=== PATIENT | female | born 1940 | race Caucasian/White ===

== ENCOUNTER → 2019-07-07 | Outpatient (CLI) | payer MEDICARE ==
[~2019-07-07] MED LIST: HYDACE10B PO; NAPR500 PO
[2019-07-07 18:02] LABS: BASOPHILS ABSOLUTE AUTO 0.07 K/mm3 (0.00-0.23); BASOPHILS PERCENT AUTO 1 % (0-2); EOSINOPHILS ABSOLUTE AUTO 0.31 K/mm3 (0.00-0.68); EOSINOPHILS PERCENT AUTO 4 % (0-6); Hematocrit 45.1 % (33.0-51.0); Hemoglobin 14.2 g/dL (11.5-16.0); IMMATURE GRAN ABSOLUTE AUTO 0.01 K/mm3 (0.00-0.10); IMMATURE GRAN PERCENT AUTO 0 % (0-1); LYMPHOCYTES ABSOLUTE AUTO 1.65 K/mm3 (0.84-5.20); LYMPHOCYTES PERCENT AUTO 20 % (21-46); MONOCYTES ABSOLUTE AUTO 0.53 K/mm3 (0.16-1.47); MONOCYTES PERCENT AUTO 6 % (4-13); Mean Corpuscular HGB 31.5 pg (26.0-34.0); Mean Corpuscular HGB Conc 31.5 g/dL (31.5-36.5); Mean Corpuscular Volume 100 fL (80-100); Mean Platelet Volume 12.1 fL (9.1-12.4); NEUTROPHILS ABSOLUTE AUTO 5.65 K/mm3 (1.96-9.15); NEUTROPHILS PERCENT AUTO 69 % (41-73); Platelet Count 236 K/mm3 (150-400); RDW Coefficient Variation 12.2 % (11.7-14.2); RDW Standard Deviation 45.6 fL (35.1-46.3); Red Blood Cell Count 4.51 M/mm3 (3.80-5.20); White Blood Cell Count 8.22 K/mm3 (4.00-11.30)
[2019-07-07 18:41] LABS: Alanine Aminotransfer (ALT/SGP 29 U/L (12-78); Albumin, Blood 3.7 g/dL (3.4-5.0); Albumin/Globulin Ratio 0.9 (0.8-1.8); Alk Phos 119 U/L (50-136); Anion Gap 6 mmol/L (6-16); Aspartate Aminotrans (AST/SGOT 26 U/L (12-37); Bilirubin, Total 0.3 mg/dL (0.1-1.0); Blood Urea Nitrogen 13 mg/dL (8-24); Bun/Creatinine Ratio 16.8 (12.0-20.0); CHOL/HDL RATIO 2.5; CO2, Blood 28 mmol/L (21-32); Calcium, Blood 9.6 mg/dL (8.5-10.1); Chloride, Blood 109 mmol/L (98-108); Cholesterol 173 mg/dL (50-200); Creatinine, Blood 0.77 mg/dL (0.40-1.00); Globulin, Blood 4.1 g/dL (2.2-4.0); Glomerular Filtration Rate >60 (60-); Glucose, Blood 104 mg/dL (70-99); HDL Cholesterol 68 mg/dL (>39); LDL Direct Measurement 81 mg/dL (0-130); LDL/HDL RATIO 1.1; Low Density Lipoprotein Chol 74 mg/dL (0-110); Potassium, Blood 3.6 mmol/L (3.5-5.5); Sodium, Blood 143 mmol/L (136-145); Total Protein, Blood 7.8 g/dL (6.4-8.2); Triglycerides 153 mg/dL (30-160); Very Low Density Lipoprot Chol 30 mg/dL (6-32)
== END | disposition home or self-care (01) ==
LOC: LAB SHORT 16:44 → LAB 16:44
PROVIDERS: Nurse Practitioner Family
DX: E78.5 Hyperlipidemia, unspecified (principal); I10 Essential (primary) hypertension
CPT/HCPCS: 80053; 80061; 83721; 85025

== ENCOUNTER → 2020-03-01 | Outpatient (CLI) | payer MEDICARE | END | disposition home or self-care (01) | LOC: LAB 18:54 → LAB SHORT 18:54 | DX: N39.0 Urinary tract infection, site not specified (principal); N32.9 Bladder disorder, unspecified | CPT/HCPCS: 87086 ==

== ENCOUNTER → 2020-09-01 | Outpatient (CLI) | payer MEDICARE ==
[2020-09-01 17:54] LABS: BASOPHILS ABSOLUTE AUTO 0.06 K/mm3 (0.00-0.23); BASOPHILS PERCENT AUTO 1 % (0-2); EOSINOPHILS ABSOLUTE AUTO 0.31 K/mm3 (0.00-0.68); EOSINOPHILS PERCENT AUTO 3 % (0-6); Hematocrit 48.1 % (33.0-51.0); Hemoglobin 15.5 g/dL (11.5-16.0); IMMATURE GRAN ABSOLUTE AUTO 0.02 K/mm3 (0.00-0.10); IMMATURE GRAN PERCENT AUTO 0 % (0-1); LYMPHOCYTES ABSOLUTE AUTO 1.69 K/mm3 (0.84-5.20); LYMPHOCYTES PERCENT AUTO 17 % (21-46); MONOCYTES ABSOLUTE AUTO 0.54 K/mm3 (0.16-1.47); MONOCYTES PERCENT AUTO 6 % (4-13); Mean Corpuscular HGB Conc 32.2 g/dL (31.5-36.5); Mean Corpuscular Volume 99 fL (80-100); Mean Platelet Volume 11.7 fL (9.1-12.4); NEUTROPHILS PERCENT AUTO 73 % (41-73); Platelet Count 248 K/mm3 (150-400); RDW Coefficient Variation 12.4 % (11.7-14.2); RDW Standard Deviation 44.4 fL (35.1-46.3); Red Blood Cell Count 4.85 M/mm3 (3.80-5.20); White Blood Cell Count 9.72 K/mm3 (4.00-11.30)
[2020-09-01 17:59] LABS: Alanine Aminotransfer (ALT/SGP 29 U/L (12-78); Albumin, Blood 3.8 g/dL (3.4-5.0); Albumin/Globulin Ratio 0.8 (0.8-1.8); Alk Phos 156 U/L (50-136); Anion Gap 3 mmol/L (6-16); Aspartate Aminotrans (AST/SGOT 31 U/L (12-37); Bilirubin, Total 0.5 mg/dL (0.1-1.0); Blood Urea Nitrogen 14 mg/dL (8-24); Bun/Creatinine Ratio 17.2 (12.0-20.0); CO2, Blood 32 mmol/L (21-32); Calcium, Blood 9.2 mg/dL (8.5-10.1); Chloride, Blood 104 mmol/L (98-108); Creatinine, Blood 0.82 mg/dL (0.40-1.00); Globulin, Blood 4.5 g/dL (2.2-4.0); Glomerular Filtration Rate >60 (60-); Glucose, Blood 114 mg/dL (70-99); Potassium, Blood 3.7 mmol/L (3.5-5.5); Sodium, Blood 139 mmol/L (136-145); Total Protein, Blood 8.3 g/dL (6.4-8.2)
[2020-09-01 18:17] LABS: Very Low Density Lipoprot Chol 24 mg/dL (6-32)
[2020-09-01 18:19] LABS: CHOL/HDL RATIO 2.5; Cholesterol 186 mg/dL (50-200); HDL Cholesterol 73 mg/dL (>39); LDL/HDL RATIO 1.2; Low Density Lipoprotein Chol 89 mg/dL (0-110); Triglycerides 122 mg/dL (30-160)
== END | disposition home or self-care (01) ==
LOC: LAB 08:30 → LAB SHORT 08:30
PROVIDERS: Nurse Practitioner Family
DX: E78.5 Hyperlipidemia, unspecified (principal)
CPT/HCPCS: 80053; 80061; 85025

== ENCOUNTER → 2021-04-04 | Outpatient (CLI) | payer MEDICARE ==
[2021-04-04 17:42] LABS: BASOPHILS ABSOLUTE AUTO 0.09 K/mm3 (0.00-0.23); BASOPHILS PERCENT AUTO 1 % (0-2); EOSINOPHILS ABSOLUTE AUTO 0.45 K/mm3 (0.00-0.68); EOSINOPHILS PERCENT AUTO 5 % (0-6); Hematocrit 49.8 % (33.0-51.0); Hemoglobin 16.4 g/dL (11.5-16.0); IMMATURE GRAN ABSOLUTE AUTO 0.02 K/mm3 (0.00-0.10); IMMATURE GRAN PERCENT AUTO 0 % (0-1); LYMPHOCYTES ABSOLUTE AUTO 2.22 K/mm3 (0.84-5.20); LYMPHOCYTES PERCENT AUTO 24 % (21-46); MONOCYTES PERCENT AUTO 7 % (4-13); Mean Corpuscular HGB 31.4 pg (26.0-34.0); Mean Corpuscular HGB Conc 32.9 g/dL (31.5-36.5); Mean Corpuscular Volume 95 fL (80-100); Mean Platelet Volume 12.2 fL (9.1-12.4); NEUTROPHILS PERCENT AUTO 63 % (41-73); Platelet Count 209 K/mm3 (150-400); RDW Coefficient Variation 12.8 % (11.7-14.2); RDW Standard Deviation 44.7 fL (35.1-46.3); Red Blood Cell Count 5.22 M/mm3 (3.80-5.20); White Blood Cell Count 9.08 K/mm3 (4.00-11.30)
[2021-04-04 18:04] LABS: CHOL/HDL RATIO 2.6; Cholesterol 195 mg/dL (50-200); HDL Cholesterol 76 mg/dL (>39); LDL/HDL RATIO 1.2; Low Density Lipoprotein Chol 94 mg/dL (0-110); Triglycerides 126 mg/dL (30-160); Very Low Density Lipoprot Chol 25 mg/dL (6-32)
[2021-04-04 19:24] LABS: Alanine Aminotransfer (ALT/SGP 29 U/L (12-78); Albumin, Blood 3.7 g/dL (3.4-5.0); Albumin/Globulin Ratio 0.8 (0.8-1.8); Alk Phos 170 U/L (50-136); Anion Gap 7 mmol/L (6-16); Aspartate Aminotrans (AST/SGOT 34 U/L (12-37); Bilirubin, Direct 0.1 mg/dL (0.0-0.3); Bilirubin, Indirect 0.5 mg/dL (0.1-0.7); Bilirubin, Total 0.6 mg/dL (0.1-1.0); Blood Urea Nitrogen 15 mg/dL (8-24); Bun/Creatinine Ratio 18.8 (12.0-20.0); CO2, Blood 27 mmol/L (21-32); Calcium, Blood 9.2 mg/dL (8.5-10.1); Chloride, Blood 106 mmol/L (98-108); Globulin, Blood 4.8 g/dL (2.2-4.0); Glomerular Filtration Rate >60 (60-); Glucose, Blood 110 mg/dL (70-99); Potassium, Blood 3.5 mmol/L (3.5-5.5); Sodium, Blood 140 mmol/L (136-145); Total Protein, Blood 8.5 g/dL (6.4-8.2)
== END | disposition home or self-care (01) ==
LOC: LAB SHORT 08:16
PROVIDERS: Nurse Practitioner Family
DX: Z13.1 Encounter for screening for diabetes mellitus (principal); E78.5 Hyperlipidemia, unspecified; I10 Essential (primary) hypertension; R79.9 Abnormal finding of blood chemistry, unspecified; R73.9 Hyperglycemia, unspecified
CPT/HCPCS: 80053; 80061; 82248; 83036; 85025

== ENCOUNTER → 2021-07-20 | Outpatient (CLI) | payer MEDICARE ==
[2021-07-20 20:08] LABS: Albumin, Blood 3.8 g/dL (3.4-5.0); Albumin/Globulin Ratio 1.1 (0.8-1.8); Bilirubin, Total 0.7 mg/dL (0.1-1.0); Calcium, Blood 9.2 mg/dL (8.5-10.1); Globulin, Blood 3.6 g/dL (2.2-4.0); Potassium, Blood 3.3 mmol/L (3.5-5.5); Total Protein, Blood 7.4 g/dL (6.4-8.2)
== END | disposition home or self-care (01) ==
LOC: LAB SHORT 15:56
PROVIDERS: Nurse Practitioner Family
DX: I50.9 Heart failure, unspecified (principal)
CPT/HCPCS: 80053; 83880

== ENCOUNTER 2021-08-05 13:52 | Inpatient (IN) | payer MEDICARE ==
[~2021-08-05] VITALS: Ht 149.9 cm; Wt 67.0 kg
[2021-08-05] MEDS ORDERED: FUROSEMIDE20 MG (14:15)
[2021-08-05] MEDS ORDERED: ATOR10 (14:15)
[2021-08-05] MEDS ORDERED: IPRAT-ALBUT 0.5-3 ML (14:15)
[2021-08-05] MEDS ORDERED: AMLODIPINE BESYL5 MG (14:15)
[2021-08-05] MEDS ORDERED: TIOT18 INH (14:15)
[2021-08-05] MEDS ORDERED: Micro-K8 MEQ (14:15)
[2021-08-05] MEDS ORDERED: METOPROLOL SUCC25 MG (14:16)
[2021-08-05] MEDS ORDERED: PILO5 (14:16)
[2021-08-05 14:35] LABS: Calcium, Ionized (POC) 1.06 mmol/L (1.10-1.46); Chloride (POC) 103 mmol/L (98-108); Creatinine (POC) 2.5 mg/dL (0.6-1.0); Glucose (ISTAT POC) 114 mg/dL (70-99); Hemoglobin (POC) 18.4 g/dL (12.0-16.0); Potassium (POC) 4.9 mmol/L (3.5-5.5); Sodium (POC) 140 mmol/L (135-148); Total CO2 (POC) 25 mmol/L (21-32)
[2021-08-05 14:52] LABS: BASOPHILS ABSOLUTE AUTO 0.09 K/mm3 (0.00-0.23); BASOPHILS PERCENT AUTO 0 % (0-2); EOSINOPHILS PERCENT AUTO 0 % (0-6); Hemoglobin 16.3 g/dL (11.5-16.0); IMMATURE GRAN ABSOLUTE AUTO 0.13 K/mm3 (0.00-0.10); IMMATURE GRAN PERCENT AUTO 1 % (0-1); LYMPHOCYTES ABSOLUTE AUTO 0.27 K/mm3 (0.84-5.20); LYMPHOCYTES PERCENT AUTO 1 % (21-46); MONOCYTES ABSOLUTE AUTO 1.26 K/mm3 (0.16-1.47); MONOCYTES PERCENT AUTO 6 % (4-13); Mean Corpuscular HGB 31.3 pg (26.0-34.0); Mean Corpuscular HGB Conc 29.5 g/dL (31.5-36.5); Mean Corpuscular Volume 106 fL (80-100); NEUTROPHILS ABSOLUTE AUTO 19.97 K/mm3 (1.96-9.15); NEUTROPHILS PERCENT AUTO 92 % (41-73); Platelet Count 191 K/mm3 (150-400); RDW Coefficient Variation 14.3 % (11.7-14.2); RDW Standard Deviation 56.5 fL (35.1-46.3); Red Blood Cell Count 5.21 M/mm3 (3.80-5.20); White Blood Cell Count 21.72 K/mm3 (4.00-11.30)
[2021-08-05 14:53] LABS: Hematocrit 55.2 % (33.0-51.0)
[2021-08-05 15:22] LABS: Albumin, Blood 3.4 g/dL (3.4-5.0); Albumin/Globulin Ratio 1.1 (0.8-1.8); Bilirubin, Total 1.6 mg/dL (0.1-1.0); Bun/Creatinine Ratio 13.3 (12.0-20.0); Calcium, Blood 8.9 mg/dL (8.5-10.1); Creatinine, Blood 2.41 mg/dL (0.40-1.00); Potassium, Blood 5.1 mmol/L (3.5-5.5); Total Protein, Blood 6.4 g/dL (6.4-8.2)
[2021-08-05 15:37] LABS: Influenza A, PCR NEGATIVE (NEGATIVE); Influenza B, PCR NEGATIVE (NEGATIVE); Resp Syncytial Virus, PCR NEGATIVE (NEGATIVE); SARS-Cov-2 (COVID-19) PCR, MMC NEGATIVE (NEGATIVE)
[2021-08-05 15:42] LABS: Source, Urine Foley catheter
[2021-08-05 15:47] LABS: Bilirubin, Urine Neg (Neg); Blood, Urine 2+ (Neg); Glucose Qualitative, Urine Neg (Neg); Ketones, Urine Neg (Neg); Leukocyte Esterase, Urine Neg (Neg); Nitrite, Urine Neg (Neg); Protein, Urine 2+ (Neg); Urobilinogen, Urine 1+ (Normal)
[2021-08-05 15:55] LABS: Appearance, Urine Clear (Clear); Color, Urine Pale Yellow (P-Yellow); White Blood Cells, Urine 0-2 /hpf (0-5)
[2021-08-05 15:56] LABS: Bacteria Rare /hpf; Granular Casts 0-2 /lpf (0); Hyaline Casts 0-2 /lpf (0-2); Squamous Epithelial Cells Few /hpf (Few)
[2021-08-05 20:16] LABS: International Normalized Ratio 1.58; Prothrombin Time Results 16.1 Sec (9.7-11.5)
[2021-08-05 21:09] LABS: Base Excess Venous -3.4 mmol/L; Bicarbonate Venous 19.4 mmol/L (24.0-30.0); PCO2 Venous 76.6 mmHg (38-42); PO2 Venous 50.6 mmHg (38-42)
[2021-08-05 21:10] LABS: pH Blood Venous 7.13 (7.34-7.37)
[2021-08-06 00:42] LABS: PCO2 Arterial 50.7 mmHg (35-45); pH Blood Arterial 7.22 (7.35-7.45)
[2021-08-06 00:43] LABS: PO2 Arterial 70 mmHg (80-100)
[2021-08-06 02:02] LABS: BASOPHILS ABSOLUTE AUTO 0.05 K/mm3 (0.00-0.23); BASOPHILS PERCENT AUTO 0 % (0-2); EOSINOPHILS PERCENT AUTO 0 % (0-6); Hemoglobin 14.9 g/dL (11.5-16.0); IMMATURE GRAN ABSOLUTE AUTO 0.04 K/mm3 (0.00-0.10); IMMATURE GRAN PERCENT AUTO 0 % (0-1); LYMPHOCYTES ABSOLUTE AUTO 0.19 K/mm3 (0.84-5.20); LYMPHOCYTES PERCENT AUTO 1 % (21-46); MONOCYTES ABSOLUTE AUTO 1.02 K/mm3 (0.16-1.47); MONOCYTES PERCENT AUTO 7 % (4-13); Mean Corpuscular HGB 31.6 pg (26.0-34.0); Mean Corpuscular HGB Conc 30.4 g/dL (31.5-36.5); Mean Corpuscular Volume 104 fL (80-100); Mean Platelet Volume 11.2 fL (9.1-12.4); NEUTROPHILS ABSOLUTE AUTO 12.73 K/mm3 (1.96-9.15); NEUTROPHILS PERCENT AUTO 91 % (41-73); Platelet Count 191 K/mm3 (150-400); RDW Coefficient Variation 13.9 % (11.7-14.2); RDW Standard Deviation 54.4 fL (35.1-46.3); Red Blood Cell Count 4.72 M/mm3 (3.80-5.20); White Blood Cell Count 14.03 K/mm3 (4.00-11.30)
[2021-08-06 02:42] LABS: Alanine Aminotransfer (ALT/SGP 3125 U/L (12-78); Albumin, Blood 3.4 g/dL (3.4-5.0); Albumin/Globulin Ratio 1.3 (0.8-1.8); Alk Phos 87 U/L (50-136); Anion Gap 15 mmol/L (6-16); Aspartate Aminotrans (AST/SGOT 4344 U/L (12-37); Blood Urea Nitrogen 40 mg/dL (8-24); Bun/Creatinine Ratio 15.3 (12.0-20.0); CO2, Blood 22 mmol/L (21-32); Calcium, Blood 7.6 mg/dL (8.5-10.1); Chloride, Blood 104 mmol/L (98-108); Creatinine, Blood 2.61 mg/dL (0.40-1.00); Globulin, Blood 2.6 g/dL (2.2-4.0); Glomerular Filtration Rate 17 (60-); Glucose, Blood 189 mg/dL (70-99); Sodium, Blood 141 mmol/L (136-145); Vancomycin, Random 16.8 ug/mL
[2021-08-06 05:34] LABS: Base Excess Venous -5.2 mmol/L; Bicarbonate Venous 20.3 mmol/L (24.0-30.0); PCO2 Venous 41.5 mmHg (38-42); PO2 Venous 72.6 mmHg (38-42); pH Blood Venous 7.31 (7.34-7.37)
--- NOTE | 2021-08-06 06:46 | NUR ---
SHIFT SUMMARY PATIENT WAS INTUBATED JUST PRIOR TO MIDNIGHT AFTER EPISODE OF VOMITING WITH BIPAP MASK ON. PATIENT BEGAN DESATTING AND RT CALLED TO BEDSIDE WITH DR. COOMBS FOLLOWING SHORTLY AFTER. SEE OPERATIVE NOTE FROM DR. COOMBS ON INTUBATION. PATIENT IS NOW ON AC/VC 26/350/5/40% WITH SPO2 IN MID 90'S. LEVOPHED TITRATED DOWN FROM 30MCG/KG/MIN TO 15MCG/KG/MIN. VASOPRESSIN STILL INF AND PROPOFOL AT 30MCG/KG/MIN. PATIENT HAD MULTIPLE CRITICAL LABS INCLUDING VBG AND ABG RESULTS WHICH HAVE IMPROVED BY END OF SHIFT. TROPONINS STILL TRENDING HIGH AND LIVER ENZYMES ARE ELEVATED AT 4344 FOR AST AND 3125 FOR ALT. CALCIUM LOW AT 7.6. TEMP VALENCIA PATENT AND DRAINED 100ML OUT OF JAYANT URINE. PATIENT BEGAN POSTURING FOLLOWING INTUBATION AND HAS NOT BEEN THERMOREGULATING APPROPRIATELY; REQUIRES FREQUENT CHANGES WITH BLANKETS TO KEEP TEMPERATURE MAINTAINED AT 98-99F. BEAR HUGGER REMOVED AT BEGINNING OF SHIFT. ECHO COMPLETED AT BEDSIDE. NO OTHER MAJOR CHANGES DURING SHIFT.
[2021-08-06 07:00] LABS: PCO2 Arterial 80.9 mmHg (35-45); pH Blood Arterial 7.06 (7.35-7.45)
[2021-08-06 07:01] LABS: PO2 Arterial 185 mmHg (80-100)
--- NOTE | 2021-08-06 07:27 | NUR ---
Received report from Daisy SEVERINO. Patient is intubated and sedated. She has 8.0 ET and 24 cm at lips with vent settings of AC/VC 26/350/30/5.0 and sats 99%. She withdrawls with care or nocious stimuli. She has right groin CL dressing intact and site WNL's and is infuisng Levophed double strength at 1- mcg/min, propofol at 30 mcg/kg/min, Vasopressin at 0.04 units/min, and NS TKO. Patient has 16 Fr Temp ramirez draining to gravity yellow urine and temp of 99.2.
--- NOTE | 2021-08-06 09:30 | NUR ---
Dr Souza in room and adjusted vent setting as sats decreased, current settings are 26/350/40/8 and sats 97%. Gave complete bath and linen change. No changes to Gtt's. called and Dr Souza gave him updates.
[2021-08-06 10:02] LABS: PCO2 Arterial 45.4 mmHg (35-45); PO2 Arterial 95.5 mmHg (80-100); pH Blood Arterial 7.31 (7.35-7.45)
--- NOTE | 2021-08-06 11:39 | NUR ---
US in room doing lower venous duplex. No changes to vent or gtt settings. Oral care and repositioning done OG remains on LIS with no output. Andrews patent and draining to gravity.
--- NOTE | 2021-08-06 15:04 | NUR ---
No changes to vent settings of 26/350/40/8 sats 98%. Gtts of Propofol 30 mcg/kg/min, Levophed 10 mcg/min,m Vasopressin 0.04 units/hr, NS TKO. Repositioned and elevate extremities.
--- NOTE | 2021-08-06 15:57 | NUR ---
ASSUME CARE: I have assumed care of this pt.
--- NOTE | 2021-08-06 18:47 | NUR ---
SHIFT SUMMARY: I took this patient over at 1600 today. UOP today only 150. Vent settings currently AC 40%, PEEP 8, RR 16, TV 350. Vasopressin continues at 0.04, levophed at 10, propofol at 30. Pt withdrawls to painful stimuli. No gag elicited on exam. NG tube to low intermitant suction due to small amount of blood visualized in tube by previous RN.
--- NOTE | 2021-08-06 19:30 | NUR ---
ASSUMED CARE. SEDATED ON VENT. SETTINGS 16/350/8/40% OPENED EYES WHEN REPOSITIONED. PUPILS 2MM AND SLUGGISH. FLEXION WITHDRAWL OF THE BLE. 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 RESPONDS TO PAINFUL STIMULI. LUNG SOUNDS ARE CLEAR UPPER LOBES DIMINISHED MID TO BASES. SATS MAINTAINING IN THE 90'S. COUGH IS NOTED WITH SUCTION, GAG, AND SWALLOW. WAS ABLE TO SUCTION SMALL AMOUNT OF BILE FOR ORAL CAVITY. FIXED SUCTION, LOW INTERMINTENT. HR PER MONITOR IN 90'S, MAP 70'S. EDEMA FROM TOES TO MID BACK PITTING, 3+. BILATERAL FEET COLD, UNABLE TO OBTAIN PEDAL PULSES WITH DOBBLER. FAINT TO MEDIAL ANKLE AREA ONLY. CAP REFILL >3. VALENCIA PATENT AND DRAINING. CURRENTLY RUNNING LEVOPHED AT 10, PROPOFOL 30, AND VASOPRESSOR AT 0.04.
--- NOTE | 2021-08-06 22:33 | NUR ---
SPOKE TO DR. COOMBS IN REGARDS TO PATIENT GOING INTO AFIB WITH RATE UP TO 130'S. STRIPS TO CHART. ORDER TO START CARDIZEM IF RATE SUSTAINS GREATER THAN 120.
[2021-08-07 03:33] LABS: BASOPHILS ABSOLUTE AUTO 0.02 K/mm3 (0.00-0.23); BASOPHILS PERCENT AUTO 0 % (0-2); EOSINOPHILS PERCENT AUTO 0 % (0-6); Hematocrit 40.1 % (33.0-51.0); Hemoglobin 12.8 g/dL (11.5-16.0); IMMATURE GRAN ABSOLUTE AUTO 0.05 K/mm3 (0.00-0.10); IMMATURE GRAN PERCENT AUTO 1 % (0-1); LYMPHOCYTES ABSOLUTE AUTO 0.73 K/mm3 (0.84-5.20); LYMPHOCYTES PERCENT AUTO 7 % (21-46); MONOCYTES ABSOLUTE AUTO 0.51 K/mm3 (0.16-1.47); MONOCYTES PERCENT AUTO 5 % (4-13); Mean Corpuscular HGB 31.4 pg (26.0-34.0); Mean Corpuscular HGB Conc 31.9 g/dL (31.5-36.5); Mean Platelet Volume 11.7 fL (9.1-12.4); NEUTROPHILS ABSOLUTE AUTO 9.37 K/mm3 (1.96-9.15); NEUTROPHILS PERCENT AUTO 88 % (41-73); NRBC ABSOLUTE 0.04 K/mm3 (0.00-0.02); NRBC Auto 0.4 /100 WBC (0.0-0.2); Platelet Count 133 K/mm3 (150-400); RDW Standard Deviation 50.7 fL (35.1-46.3); Red Blood Cell Count 4.07 M/mm3 (3.80-5.20); White Blood Cell Count 10.68 K/mm3 (4.00-11.30)
[2021-08-07 03:34] LABS: Mean Corpuscular Volume 99 fL (80-100)
[2021-08-07 03:54] LABS: Albumin, Blood 3.5 g/dL (3.4-5.0); Anion Gap 11 mmol/L (6-16); Blood Urea Nitrogen 52 mg/dL (8-24); Bun/Creatinine Ratio 18.2 (12.0-20.0); CO2, Blood 25 mmol/L (21-32); Chloride, Blood 105 mmol/L (98-108); Creatinine, Blood 2.86 mg/dL (0.40-1.00); Glomerular Filtration Rate 16 (60-); Glucose, Blood 130 mg/dL (70-99); Phosphorus, Blood 4.4 mg/dL (2.5-4.9); Potassium, Blood 3.8 mmol/L (3.5-5.5); Sodium, Blood 141 mmol/L (136-145); Vancomycin, Random 16.8 ug/mL
--- NOTE | 2021-08-07 05:59 | NUR ---
AFTER REVIEWING CHEST XRAY OG ADVANCED APROX 7 CM CHECKING WITH AIR BOLUS. CONTINUES TO DRAIN DARK BROWN BILE TO LIS. SECURED WITH RT PINK TAPE.
--- NOTE | 2021-08-07 06:10 | NUR ---
SHIFT SUMMARY: SEDATED WITH NO CHANGE TO VENT SETTINGS. SETTINGS CURRENTLY AT 16/340/8/40%. SATS AVERAGE HIGH 90'S. DIMINISHED LUNG SOUNDS, MINIMAL SECREATIONS WITH SUCTION. WITHDRAWLS WITH PAIN. GAG, SWALLOW, AND COUGH ALL NOTED WHEN SUCTIONING. IN AFIB WITH RATE RANGE OF 115-130'S. DR. COOMBS NOTIFIED. ORDER FOR CARDIZEM FOR RATE >120 SUSTAINED. FAINT PULSES, ABSENT TO RIGHT PEDAL WITH DOPPLER, BUT OBTAINED PULSE TO MEDIAL ANKLES. 3+ EDEMA BLE UP TO MID BACK. SBP 80-90'S WITH MAP 60-70. ABD HYPOACTIVE MILD DISTENSION SOFT. OJ TO LIS-TUBE ADVANCED THIS AM, 100CC OUTPUT. SMALL AMOUNT OF BILE SUCTIONED FROM ORAL GAVITY. VALENCIA PATENT, 275CC OUTPUT. WEIGHT GAIN NOTED OF 6.2LBS THIS AM. MEDS CURRENTLY RUNNING: LEVOPHED-5; PROPOFOL-35; VASO ON HOLD, AND TKO. ABNORMAL LABS CONSIST OF: CREATINE-2.86; GFR-16; BNP- PENDING; AND TROPONIN TRENDING DOWN AT 466. WILL REPORT CHANGES TO DAYSHIFT. LIS- OJ TUBE ADVANCED THIS AM. 100CC OUTPUT.
--- NOTE | 2021-08-07 08:10 | NUR ---
ASSUMED CARE: REPORT RECEIVED FROM MARLENA HOWELL W, RNs. ASSUMED CARE OF THIS PT AT APPROX 0700. ON ASSESSMENT, THE PT IS SEDATED W/ PROPOFOL & INTUBATED. GRIMACES TO PAINFUL STIMULUS, HENSON. LS ARE DIM IN BASES, PT ON VENT W/ SETTINGS: AC/VC 16/350/8/40% W/ O2 SATS > 92%. MONITOR SHOWS AFIB W/ RVR, HR 110s. PERSISTANT HYPOTENSION W/ LEVOPHED INFUSING AT 4 MCG/MIN. OGT IN PLACE TO LIS, DARK GREEN/ BILE OUTPUT NOTED IN SMALL AMOUNTS. TEMP VALENCIA PATENT/ DRAINING YELLOW URINE. SKIN CONDITION OVERAL INTACT, Q2H REPOSITIONING TO MAINTAIN SKIN INTEGRITY. WILL CONTINUE TO MONITOR & UPDATE NEEDED.
--- NOTE | 2021-08-07 14:44 | NUR ---
DR WILKES: PROVIDER AT BEDSIDE TO EVAL PT. HAS PLACED VENT ON SPONTANEOUS W/ PS 12, PEEP 8 & FIO2 35%. PT TOLERATING WELL W/ ADEQUATE TIDAL VOLUMES & RR. SHE WOULD LIKE PROPOFOL TO BE TITRATED DOWN & PRECEDEX TO BE STARTED SEDATION ADJUNCT. NO OTHER CHANGES AT THIS TIME.
--- NOTE | 2021-08-07 17:15 | NUR ---
NO ACUTE CHANGES. PT REMAINS INTUBATED AND SEDATED WITH PROPOFOL. LUNG SOUNDS ARE CLEAR AND DIMINISHED IN THE LOWER LOBES. AFIB WITH HR RANGING 90-130, SHE IS ON 10MG CARDIZEM FOR HR SUSTAINING IN THE 130'S. OG NUTRITION STARTED @ 25MLS/HR. CATHETER CONTINUES TO DRAIN WELL WITH AN OUTPUT OF 400 ML SINCE 0700. NO BM 3+ PITTING EDEMA IN LOWER EXREMITIES TO MID BACK. SHE CONTINUES TO WITHDRAW TO PAIN AND OPENS EYES TO VERBAL STIMULUS BUT DOES NOT TRACK STAFF AND DOES NOT PROTECT.
--- NOTE | 2021-08-07 17:46 | NUR ---
SHIFT SUMMARY: NO ACUTE CHANGES SINCE PRIOR UPDATES. PT REMAINS SEDATED W/ PROPOFOL & INTUBATED W/ 8.0 ETT, NOTED TO BE 23.0 CM ATG. PT OPENS EYES TO VERBAL STIMULUS, DOES NOT TRACK OR PROTECT BY BLINKING. LS CLEAR T/O, VENT SETTINGS: SPONTANEOUS W/ PS 12, PEEP 8 & 35% FIO2. MONITOR SHOWS AFIB W/ HR 80-100, CARDIZEM CURRENTLY INFUSING AT 5 MG/HR, LEVOPHED INFUSING AT 10 MCG/MIN. OGT IN PLACE W/ TUBE FEEDS OF PIVOT 1.5 INFUSING AT 25 ML/HR W/ 30 ML H2O FLUSH Q4H. TUBE FEED RATE MAY BE INCREASED TO GOAL RATE OF 35 ML/HR AT APPROX 2030 TONIGHT IF PT CONTINUES TO TOLERATE WELL. TEMP VALENCIA PATENT/ DRAINING YELLOW URINE W/ OUTPUT CONTINUING TO IMPROVE. SKIN CONDITION OVERALL INTACT, Q2H REPOSITIONING TO MAINTAIN SKIN INTEGRITY. WILL CONTINUE TO MONITOR & REPORT OFF TO ONCOMING RN.
--- NOTE | 2021-08-07 20:34 | NUR ---
ASSUMED CARE. OPENS EYES TO NAME, DOES NOT TRACK, DOES NOT FOLLOW COMMANDS. PUPILS SLUGGISH, 3MM IN SIZE. RETRACTS LEGS UP AND WIGGLES IN BED. RT WAS IN AROUND 1950 AND CHANGED VENT TO (AC) SETTINGS 16/350/8/35%. SATS 96%. SUCTION COMPLETED THIN CLEAR YELLOW SECREATIONS. OG WITH TUBE FEEDING INCREASED TO 30CC, RESIDUAL WAS 20CC AT THE TIME. LUNG SOUNDS DIMINISHED. TACHYCARDIC 100-114, AFIB. PEDAL PULSES FAINT WITH DOPPLER. EDEMA IMPROVING SLIGHTLY. CATH PATENT, YELLOW URINE. IV DRIPS OF LEVO-10; PROPOFOL-20, CARDIZEM-5, KVO NS. AFTER REPOSITIONING, PATIENT BECAME AGGITATED WIGGLEING IN BED, PULLING ON RESTRAINTS. THEREFORE PRECEDEX DRIP WAS STARTED AT 0.2MCQ.
--- NOTE | 2021-08-07 21:30 | NUR ---
INCREASED TUBE FEED AT 2006 TO 30ML/HR. THEN INCREASED TO GOAL RATE OF 35ML/HR. PATIENT TOLERATING WELL. RESIDUAL AT TIME OF INCREASE WAS 20CC.
--- NOTE | 2021-08-08 | NUR ---
BEDBATH COMPLETED. TOLERATED WELL. DOES NOT LIKE TO REPOSITION. SHE TENDS TO WIGGLE FOR SHORT PERIOD OF TIME AFTERWARDS TILL SHE GETS INTO COMFORTABLE POSITION. DURING THIS TIME, RESPIRATIONS TENDS TO INCREASE IN THE 30'S, MAP DIPPED SLIGHTLY. ORAL CARE COMPLETED. NO CHANGES TO CURRENT DRIPS. SEE FLOWSHEET. VENT REMAINS ON ASSIST CONTROL, NO CHANGE TO SETTINGS.
[2021-08-08 05:39] LABS: Albumin, Blood 3.2 g/dL (3.4-5.0); Anion Gap 8 mmol/L (6-16); Blood Urea Nitrogen 47 mg/dL (8-24); Bun/Creatinine Ratio 20.6 (12.0-20.0); CO2, Blood 25 mmol/L (21-32); Calcium, Blood 7.6 mg/dL (8.5-10.1); Chloride, Blood 109 mmol/L (98-108); Creatinine, Blood 2.28 mg/dL (0.40-1.00); Glomerular Filtration Rate 20 (60-); Glucose, Blood 149 mg/dL (70-99); Potassium, Blood 3.1 mmol/L (3.5-5.5); Sodium, Blood 142 mmol/L (136-145); Vancomycin, Random 17.9 ug/mL
--- NOTE | 2021-08-08 06:49 | NUR ---
SHIFT SUMMARY: CONTINUES ON VENT SETTINGS 16/350/8/40%. LS CLEAR, DIMINISHED IN BASES. SATS HIGH 90'S, SUCTION CLEAR SMALL AMOUNTS VIA ETT. WILL OPEN EYES, NO TRACKING, DOES NOT FOLLOW DIRECTIONS. FLEXTION WITHDRAWL AND GROSS MOTOR MOVEMENTS NOTED. WILL GET AGGITATED WITH REPOSITIONING OR ORAL SUCTION. CONTINUES TO BE IN AFIB RATE IN THE 80'S, HAS HAD MULTIFORM PVC'S, PAIR PVC'S. BP LOW 90'S WITH MAP >60. EDEMA IMPROVING SLIGHTLY, +3 DEPENDENT FROM TOES TO MID BACK. NO SKIN BREAKDOWN. PEDAL PULSES FAINT BUT PALPABLE. VALENCIA OUTPUT 675. TUBE FEED AT GOAL OF 35CC/HR. RESIDUALS <35. LABS THIS AM: CREATINE 2.28; GFR-20; K+ 3.1; PHOSPHORUS 2.0. TUBE FEED AT GOAL OF 35ML/HR. GTTS: LEVO-10; CARDIZEM-5; PROPOFOL-20; PRECEDEX-0.3 AND TKO.
--- NOTE | 2021-08-08 08:10 | NUR ---
ASSUMED CARE: REPORT RECEIVED FROM MARLENA HOWELL W, RNs. ASSUMED CARE OF THIS PT AT APPROX 0700. ON ASSESSMENT, THE PT IS SEDATED W/ PROPOFOL & PRECEDEX, RESTING QUIETLY. SHE GRIMACES TO PAINFUL STIMULUS & OPENS EYES TO VERBAL STIMULUS. LS ARE DIM IN BASES, VENT SETTINGS: AC/VC 16/350/8/35% W/ O2 SATS > 92%. MONITOR SHOWS AFIB W/ HR 70-80s, OCCASIONAL PVCs, CARDIZEM DRIP AT 5 MG/HR. LEVOPHED INFUSING AT 10 MCG/MIN FOR PERSISTANT HYPOTENSION. OGT IN PLACE W/ PIVOT 1.5 AT GOAL RATE OF 35 ML/HR. TEMP VALENCIA PATENT/ DRAINING YELLOW URINE. SKIN CONDITION OVERALL EDEMATOUS, FRAGILE, INTACT. Q2H REPOSITIONING TO MAINTAIN SKIN INTEGRITY. WILL CONTINUE TO MONITOR & UPDATE NEEDED.
--- NOTE | 2021-08-08 09:26 | NUR ---
UPDATE: DR WILKES AT BEDSIDE THIS AM TO EVAL PT. SHE WOULD LIKE US TO TITRATE THE PROPOFOL DOWN FURTHER THIS SHIFT & INCREASE PRECEDEX PRN TO KEEP THE PATIENT COMFORTABLE. THE VENT HAS BEEN PLACED ON SPONTANEOUS MODE AT APPROX 0905 W/ SETTINGS: PS 8, PEEP 8 & FIO2 35%. THE PT IS TOLERATING THIS WELL W/ ADEQUATE TIDAL VOLUMES & RR.
--- NOTE | 2021-08-08 17:39 | NUR ---
SHIFT SUMMARY: NO ACUTE CHANGES SINCE PRIOR UPDATES. PT REMAINS LIGHTLY SEDATED W/ PROPOFOL & PRECEDEX. EYES OPEN TO VERBAL STIMULUS, PT APPEARED TO TURN HER HEAD TOWARD VERBAL STIMULUS BUT HAVE BEEN UNABLE TO REPLICATE THIS OCCURENCE. LS DIM IN BASES, VENT SETTINGS: SPONTANEOUS W/ PS 8, PEEP 8 & FIO2 35%. PT TOLERATING WELL W/ O2 SATS > 92%, ADEQUATE TIDAL VOLUMES & RR. MONITOR SHOWS AFIB W/ HR 70-100s ON AVG. FIRST DOSE PO CARDIZEM GIVEN TONIGHT AT 1700, IV CARDIZEM DRIP PLACED ON STANDBY AT APPROX 1735. LEVOPHED INFUSING AT 10 MCG/MIN FOR HYPOTENSION. OGT IN PLACE W/ PIVOT 1.5 INFUSING AT GOAL RATE OF 35 ML/HR, MODERATE RESIDUALS - SEE I&O. BOWEL CARE INITIATED PER EMAR, NO BM THIS SHIFT. TEMP VALENCIA PATENT/ DRAINING YELLOW URINE W/ ADEQUATE OUTPUT. SKIN CONDITION OVERALL FRAGILE, INTACT. Q2H REPOSITIONING TO MAINTAIN SKIN INTEGRITY. WILL CONTINUE TO MONITOR & REPORT OFF TO ONCOMING RN.
--- NOTE | 2021-08-08 20:43 | NUR ---
ASSUMED CARE. RT CHANGED VENT SETTING BACK TO VC/AC, SETTINGS 16/350/8/35%. SATS CONTINUE IN THE HIGH 90'S. OPEN EYES TO PAIN AND MOVEMENT. DOES NOT TRACK, PUPILS SLUGGISH. GROSS MOVEMENTS. AFTER SUCTIONING SHE DID OPEN HER EYES WIDE, WHEN ASKED IF SHE WAS IN PAIN SHE NODDED HEAD YES. WHEN NAMING OFF AREAS, ONLY GOT RESPONSE WHEN ASKED IF THROAT HURT, SHE OPENED HER MOUTH WIDE AND RAISED HER HEAD. REMINDED HER OF PLACE, WHAT WAS GOING ON, SHE REMAINED CALM, FALLING BACK TO SLEEP. NO SECREATIONS ON SUCTION. ORAL GAVITY CLEAR OF SORES OR AREAS OF TENDERNESS, REPOSITIONED ETT TUBE. MOISTURE APPLIED. GTTS: LEVO 10MCG, PRECEDEX 0.5MCG, PROPOFOL 10MCG, AND NS TKO. RESTRAINTS CHECKED. PIVOT 1.5 TO OG, Q4 FLUSH. CATH PATENT. RUN OF PVC'S ON MONITOR, RYTHEM AFIB. CENTRAL LINE, AND PERIPHERAL IV CHECKED AND FLUSHED. SEE ASSESSMENT AND CHARTS FOR DETAILS.
[2021-08-09 05:27] LABS: BASOPHILS ABSOLUTE AUTO 0.02 K/mm3 (0.00-0.23); BASOPHILS PERCENT AUTO 0 % (0-2); EOSINOPHILS ABSOLUTE AUTO 0.23 K/mm3 (0.00-0.68); EOSINOPHILS PERCENT AUTO 3 % (0-6); Hematocrit 42.5 % (33.0-51.0); Hemoglobin 13.8 g/dL (11.5-16.0); IMMATURE GRAN ABSOLUTE AUTO 0.03 K/mm3 (0.00-0.10); IMMATURE GRAN PERCENT AUTO 0 % (0-1); LYMPHOCYTES ABSOLUTE AUTO 0.88 K/mm3 (0.84-5.20); LYMPHOCYTES PERCENT AUTO 11 % (21-46); MONOCYTES ABSOLUTE AUTO 0.64 K/mm3 (0.16-1.47); MONOCYTES PERCENT AUTO 8 % (4-13); Mean Corpuscular HGB 31.4 pg (26.0-34.0); Mean Corpuscular HGB Conc 32.5 g/dL (31.5-36.5); Mean Corpuscular Volume 97 fL (80-100); Mean Platelet Volume 11.1 fL (9.1-12.4); NEUTROPHILS ABSOLUTE AUTO 6.43 K/mm3 (1.96-9.15); NEUTROPHILS PERCENT AUTO 78 % (41-73); Platelet Count 160 K/mm3 (150-400); RDW Coefficient Variation 14.3 % (11.7-14.2); RDW Standard Deviation 51.5 fL (35.1-46.3); Red Blood Cell Count 4.39 M/mm3 (3.80-5.20); White Blood Cell Count 8.23 K/mm3 (4.00-11.30)
[2021-08-09 05:39] LABS: PCO2 Arterial 42.2 mmHg (35-45); pH Blood Arterial 7.41 (7.35-7.45)
--- NOTE | 2021-08-09 05:56 | NUR ---
SHIFT SUMMARY: PT REMAINS LIGHTLY SEDATED WITH PROPOFOL AT 20MCG AND PRECEDEX INCREASED TO 0.7MCG. OPENS EYES TO NOISE. SHE DID TURN HEAD TOWARDS VOICE ONCE PRIOR TO PRECEDEX INCREASE. SHE ALSO NODDED HEAD YES TO PAIN, AND OPENED HER MOUTH WIDE WHEN ASKED WHERE. LS DIM IN BASES, VENT SETTINGS: VC/AC 16/350/8/35%. SATS 95-98%. ADEQUATE TIDAL VOLUMES AND RR T/O NOGHT. MONITOR SHOWS AFIB RATE IN THE 80'S. LEVOPHED DECREASED TO 6 TO MAINTAIN MAP >65. OGT IN PLACE W/ PIVOT 1.5 INFUSING AT GOAL RATE OF 35 ML/HR, MODERATE RESIDUALS - SEE I&O. NO BM THIS SHIFT. VALENCIA PATENT/DRAINING WITH GOOD OUTPUT. SKIN INTACT, REPOSITION Q2. ABNORMAL LABS: BNP DECREASED TO 704; k+ INCREASED TO 3.3; CREATINE IMPROVED TO 1.64; GFR INCREASED TO 30, PHOS NO CHANGE STILL AT 2.0 FROM YESTERDAY. WILL REPORT TO DAYSHIFT.
[2021-08-09 06:07] LABS: Albumin, Blood 2.7 g/dL (3.4-5.0); Anion Gap 6 mmol/L (6-16); Blood Urea Nitrogen 40 mg/dL (8-24); Bun/Creatinine Ratio 24.4 (12.0-20.0); CO2, Blood 27 mmol/L (21-32); Calcium, Blood 7.5 mg/dL (8.5-10.1); Chloride, Blood 110 mmol/L (98-108); Creatinine, Blood 1.64 mg/dL (0.40-1.00); Glomerular Filtration Rate 30 (60-); Glucose, Blood 136 mg/dL (70-99); Potassium, Blood 3.3 mmol/L (3.5-5.5); Sodium, Blood 143 mmol/L (136-145); Vancomycin, Random 16.8 ug/mL
--- NOTE | 2021-08-09 09:19 | NUR ---
[facility]: Care assumed at 0700hr. Patient intubated and sedated. Attempts to open eyes to noxious stimuli, moves all extremities to noxious stimuli, but not following any commands. Precedex gtt at 0.7mcg/kg/hr, propofol gtt at 10mcg/kg/min. Vent to AC 16/350/8/35%, spO2-98%, tolerating vent without difficulty. Levophed gtt at 6mcgmin at shift change then decreased to 4mcg/min, BP remains stable. HR shows A-fibb in the 70's-80's with occasional PVC's. Central line to rt groin patent and intact. TF at goal rate, no s/s of Gi intolerance. Andrews cath patent and intact, draining clear yellow urine. Dr. Matthews to room at approx 0800hr. Attempted to change patient to PS mode on ventilator, but patient apneic at that time. Received instructions to stop propofol gtt, plan to attempt PS mode again when patient is more alert. Soft bilateral wrist restraints in place to protect lines, tubes, cords. Will continue to monitor.
--- NOTE | 2021-08-09 18:44 | NUR ---
Shift Summary: No significant changes throughout shift. Propofol gtt turned off this morning and remained off throughout remainder of shift. After stopping propofol, patient became more alert, responding to verbal stimuli, and following simple instructions. Patient occasionally becomes agitated (thrashing in bed), but able to verbally re-direct patient. Precedex gtt remained at 0.7 mcg/kg/hr throughout shift. Patient tolerated PS mode on ventilator throughout shift. VSS, levophed gtt titrated off at approx 1100hr, BP remains stable and WNL throughout shift. Andrews cath remains patent and intact, draining clear yellow urine. Spoke with Dr. Matthews, confirmed plan to leave ventilator to PS mode throughout night as long as patient tolerates. Will continue to monitor until report to NOC shift RN.
--- NOTE | 2021-08-09 20:00 | NUR ---
ASSESSMENT/ASSUMED CARE PT INTUBATED AND ON [facility] VENT. LIGHT SEDATION. PT OPENS EYES TO VERBAL STIMULI AND FOLLOWS INSTRUCTIONS. Z OS MAINFRAME SYSTEMS PROGRAMMER WEAK. MAEW. VENT SETTINGS SPONT 8 PEEP 5 FIO2 35%. LUNGS CLEAR, SUCTIONED SMALL AMT CLEAR FLUID VIA ET TUBE. HEART ELEVATED 100-120'S PT RECEIVING CARDIZEM Q8HR. BP STABLE. GENERAL EDEMA. BT+ ABD SLIGHTLY FIRM, NONTENDER TO PALPATION. OG WITH TUBE FEED PIVOT 1.5 YAMILE AT GOAL RATE 35 ML/HR, WATER 30 ML Q4HR. RESIDUAL 5 ML REFED. CENTRAL LINE TO RIGHT GROIN, DRSG INTACT. WILL CHANGE DRSG TONIGHT. PT INCONT OF LIQUID BROWN STOOL. MARCO A CARE AND CATH CARE DONE. REPOSITIONED AND ORAL CARE DONE. VALENCIA CATH PATENT DRAINING YELLOW URINE. IV TO LEFT HAND LEAKING, DC'D INTACT. IV LEFT UPPER ARM FLUSHED WITHOUT DIFFICULTY, SALINE LOCKED. BILAT SOFT WRIST RESTRAINTS ON. ASSISTED WITH ROM.
[2021-08-10 05:08] LABS: Vancomycin, Random 15.4 ug/mL
--- NOTE | 2021-08-10 06:41 | NUR ---
SHIFT SUMMARY PT CONT ON MECH VENT. PT HAS REMAINED ON SPONT 8 PEEP 5 FIO2 35% ALL NIGHT. NO RESP DISTRESS NOTED. PT AWAKENS TO VERBAL STIMULI AND FOLLOWS INSTRUCTIONS. NODS YES/NO TO QUESTIONS. PT REMAINS IN AFIB RATE 100-120'S. BP STABLE OFF LEVOPHED. SEDATED WITH PRECEDEX AT 0.7 MCQ/KG/HR VIA CENTRAL LINE TO RIGHT GROIN. CENTRAL LINE DRSG CHANGED DURING THE NIGHT. TUBE FEED AT GOAL WITH MIN TO NO RESIDUALS. PT HAVING LIQUID STOOLS DURING THE NIGHT. FREQUENT TURNING. BILAT SOFT WRIST RESTRAINTS ON. REPORT TO ON COMING NURSE
--- NOTE | 2021-08-10 08:44 | NUR ---
ASSUMPTION OF CARE PT SEDATED W PRECEDEX. MECHANICAL VENTILATION, SPONTANEOUS MODE, FIO2 35%, PEEP 5. WAKES EASILY, FOLLOW COMMANDS IN ALL FOUR EXTREMITIES. NODS APPROPRIATELY. DENIES PAIN. SCANT SECRETOINS FROM ETT. A FIB WITH RATE 100-110S. BP APPROPRIATE. MILD NON PITTING EDEMA IN BLE. TUBE FEED STOPPED AT 0800 PER MD IN PREPARATION FOR EXTUBATION. VALENCIA DRAINING CLEAR YELLOW URINE. PT HAVING FREQUENT BOWEL MOVEMENTS.
[2021-08-10 09:07] LABS: Base Excess Venous 3.9 mmol/L; Bicarbonate Venous 26.5 mmol/L (24.0-30.0); PCO2 Venous 48.9 mmHg (38-42); PO2 Venous 40.7 mmHg (38-42); pH Blood Venous 7.38 (7.34-7.37)
[2021-08-10 10:26] LABS: PCO2 Arterial 47.5 mmHg (35-45); pH Blood Arterial 7.37 (7.35-7.45)
--- NOTE | 2021-08-10 11:41 | NUR ---
PT EXTUBATED TO 4L NC AT 1120. SATS >95. CALM AND COOPERATIVE, RESTRAINTS D/C'D.
[2021-08-10 12:40] LABS: Bun/Creatinine Ratio 26.6 (12.0-20.0); Calcium, Blood 7.4 mg/dL (8.5-10.1); Creatinine, Blood 1.09 mg/dL (0.40-1.00); Potassium, Blood 3.7 mmol/L (3.5-5.5)
--- NOTE | 2021-08-10 12:50 | NUR ---
PT SHOWING SIGNS OF INCREASED WORK OF BREATHING. RT NOTIFIED, NEBULIZER ADMINISTERED WITH LITTLE IMPROVEMENT. MD NOTIFIED AND PT PLACED ON BIPAP. WITH BIPAP, WORK OF BREATHING IMPROVED. LASIX ALSO ORDERED BY .
[2021-08-10 13:00] LABS: BASOPHILS ABSOLUTE AUTO 0.04 K/mm3 (0.00-0.23); BASOPHILS PERCENT AUTO 0 % (0-2); EOSINOPHILS ABSOLUTE AUTO 0.16 K/mm3 (0.00-0.68); EOSINOPHILS PERCENT AUTO 2 % (0-6); Hematocrit 44.3 % (33.0-51.0); IMMATURE GRAN ABSOLUTE AUTO 0.09 K/mm3 (0.00-0.10); IMMATURE GRAN PERCENT AUTO 1 % (0-1); LYMPHOCYTES PERCENT AUTO 7 % (21-46); MONOCYTES ABSOLUTE AUTO 0.86 K/mm3 (0.16-1.47); MONOCYTES PERCENT AUTO 9 % (4-13); Mean Corpuscular HGB 31.7 pg (26.0-34.0); Mean Corpuscular HGB Conc 31.6 g/dL (31.5-36.5); Mean Corpuscular Volume 101 fL (80-100); NEUTROPHILS ABSOLUTE AUTO 7.83 K/mm3 (1.96-9.15); NEUTROPHILS PERCENT AUTO 81 % (41-73); NRBC ABSOLUTE 0.02 K/mm3 (0.00-0.02); NRBC Auto 0.2 /100 WBC (0.0-0.2); Platelet Count 131 K/mm3 (150-400); RDW Coefficient Variation 14.7 % (11.7-14.2); RDW Standard Deviation 55.3 fL (35.1-46.3); Red Blood Cell Count 4.41 M/mm3 (3.80-5.20); White Blood Cell Count 9.68 K/mm3 (4.00-11.30)
--- NOTE | 2021-08-10 17:45 | NUR ---
SHIFT SUMMARY PT NOW ON HFNC AT 3L WITH SATS >95%. BREATHING UNLABORED. SHE HAS A WEAK FREQUENT COUGH THAT REQUIRES DEEP ORAL SUCTIONING TO REMOVE SECRETIONS. SHE IS ALERT, BUT HAS DIFFICULTY TALKING ASSUMED DUE TO RECENT EXTUBATION. NODS APPROPRIATELY. ORIENTED TO SELF AND PLACE. WEAK BUT OVERCOMES GRAVITY IN BLE AND BUE. CARDIZEM GTT STARTED AROUND 1500 FOR INCREASED A FIB HR. CURRENTLY RUNNING AT 15MG/HR WITH A FIB HR 90S. BP APPROPRAITE, SEE VITALS. FREQUENT LOOSE BOWEL MOVEMENTS TODAY. LASIX GIVEN THIS AFTERNOON WITH 750CC UOP POST MEDICATOIN ADMINISTRATION. NPO TILL SWALLOW EVAL. REDNESS IN GROIN AREA FROM MOISTURE EXPOSURE. TURNS AND SKIN CARE Q2.
--- NOTE | 2021-08-10 19:55 | NUR ---
ASSESSMENT/ASSUMED CARE PT REMOVED O2 FROM MOUTH. SPO2 DOWN TO 79%. LUNGS COARSE AND DECREASED. PLACED PT ON BIPAP 06/05 RATE 12 FIO2 100%. SPO2 UP TO 99-100%. DECREASED FIO2 TO 40%. RESP RATE EVEN AND NONLABORED. DEEP ORAL SUCTIONS AFTER SPO2 UP TO 99% WITH SMALL AMT WHITE SECRECTIONS. HEART RATE IN THE 80'S, SBP 100'S MAP DOWN TO 62. DECREASED CARDIZEM GTT TO 10 MG/HR. GENERAL EDEMA. PT FOLLOWING INSTRUTIONS AND MOVING EXT. SPEECH QUIET AND HARD TO UNDERSTAND. BT+ ABD. PT NPO. VALENCIA CATH PATENT AND DRAINING YELLOW URINE. IV TO LEFT UPPER ARM SALINE LOCKED, SITE CLEAR AND FLUSHED WITHOUT DIFFICULTY. CENTRAL LINE TO RIGHT GROIN DRSG INTACT. NS AT 10 ML/HR AND CARDIZEM GTT INFUSING. REPOSITIONED PT SMEAR OF STOOL NOTED. MARCO A CARE DONE AND CALZIME CREAM APPLIED. ORAL CARE DONE.
--- NOTE | 2021-08-11 00:05 | NUR ---
REASSESSMENT PT PLACED ON O2 12 LITERS VIA HIFL TO THE MOUTH FOR A BREAK FROM THE BIPAP. SPO2 REMAINS 99-100%. ORAL CARE DONE AND DEEP ORAL SUCTION DONE FOR WHITE SECRECTIONS. PT WITH WEAK COUGH. RESP EVEN AND NONLABORED. WILL LEAVE OFF BIPAP FOR NOW. PT REPOSITIONED, SMEAR LIQUID STOOL NOTED. MARCO A CARE DONE. CARDIZEM CONT AT 10 MG/HR HEART RATE 80-90'S. BP STABLE.
--- NOTE | 2021-08-11 02:14 | NUR ---
RESP PT PLACED BACK ON BIPAP AFTER REPOSITIONING DUE TO SPO2 DOWN TO 90-91% ON 12 LITERS HIFL O2. BIPAP SETTINGS 06/05 RATE 12 FIO2 40%. INCREASED FIO2 TO 50% AND SUCTIONED MODERATED AMT WHITE SECRECTIONS VIA DEEP ORAL. SPO2 UP GREATER THAN 95%.
--- NOTE | 2021-08-11 02:39 | NUR ---
RESP PT PULLING ON BIPAP MASK. SPO2 DOWN TO 89%. INCREAED FIO2 TO 75%. CALL OUT TO RT.
[2021-08-11 04:21] LABS: Vancomycin, Random 14.8 ug/mL
--- NOTE | 2021-08-11 06:03 | NUR ---
SHIFT SUMMARY PT RESTING QUIETLY AT THIS TIME WITH BIPAP ON. PT WAS PLACED ON BIPAP DURING THE NIGHT AFTER SHE REMOVED HER O2 AND HER SPO2 WENT DOWN TO 79% ON ROOMAIR. BIPAP WAS STARTED SETTINGS /6 RATE 12 TITRATED FIO2 FOR SPO2 GREATER THAN 90%. FIO2 WAS AT 40% MOST OF THE NIGHT. PT HAD A BREAK FROM THE BIPAP FOR 2HRS AND WAS ON [address] BACK ON BIPAP AT 0200 DUE TO SPO2 DECREASING AND FIO2 WAS INCREASED TO 75% BUT HAS SINCE BEEN TITRATED DOWN TO 50%. LUNGS COARSE AND DECREASED. SUCTIONED MOD ANT WITH DEEP ORAL SUCTIONS. ENCOURAGED COUGH, COUGH WEAK. RESP EVEN AND NONLABORED. PT HAS HAD BREAKS FROM THE BIPAP FOR ORAL CARE. HEART RATE CONT IRREGULAR, AFIB. PT ON CARDIZEM GTT, TITRATED DOWN TO 10 MG/HR DUE TO HEART RATE DOWN IN THE 80'S AND BP DECREASED. PT VERY WEAK BUT ASSISTING WITH TURNING. SPEECH CLEAR AT TIMES BUT SLOW. IMPROVED MENTATION WITH USE OF THE BIPAP. ENCOURAGED BIPAP USE. DECREASED URINE OUTPUT DURING THE NIGHT, 405 ML OF URINE FOR THE NIGHT. CENTRAL LINE TO RIGHT GROIN WITH NS AT 10 ML/HR AND CARDIZEM GTT. PT NPO, POSSIBLE SWALLOW EVAL TODAY. REPORT TO ON COMING NURSE
--- NOTE | 2021-08-11 06:32 | NUR ---
SPOKE WITH DR ELAINE REGARDING LUNG SOUNDS AND BIPAP SETTINGS DURING THE NIGHT. DR ELAINE WITH ORDER LABS AND CHEST XRAY. CONT TO MONITOR IN ICU.
[2021-08-11 06:53] LABS: Hematocrit 45.5 % (33.0-51.0); Hemoglobin 13.8 g/dL (11.5-16.0); Mean Corpuscular HGB 31.2 pg (26.0-34.0); Mean Corpuscular HGB Conc 30.3 g/dL (31.5-36.5); Mean Corpuscular Volume 103 fL (80-100); Mean Platelet Volume 10.2 fL (9.1-12.4); Platelet Count 162 K/mm3 (150-400); RDW Coefficient Variation 15.1 % (11.7-14.2); RDW Standard Deviation 57.8 fL (35.1-46.3); Red Blood Cell Count 4.43 M/mm3 (3.80-5.20); White Blood Cell Count 8.82 K/mm3 (4.00-11.30)
[2021-08-11 07:11] LABS: Bun/Creatinine Ratio 24.8 (12.0-20.0); Creatinine, Blood 1.17 mg/dL (0.40-1.00); Potassium, Blood 4.1 mmol/L (3.5-5.5)
[2021-08-11 07:38] LABS: BASOPHILS PERCENT MAN 0 % (0-2); EOSINOPHILS PERCENT MAN 0 % (0-6); LYMPHOCYTES PERCENT MAN 2 % (21-46); MONOCYTES PERCENT MAN 5 % (4-13); SEG NEUTROPHILS PERCENT MAN 93 % (41-73); TOTAL CELLS COUNTED 100
--- NOTE | 2021-08-11 12:24 | NUR ---
PT WAS GIVEN A BREAK FROM BIPAP AND PLACED ON HFNC AT 5 L. SHE TOLERATED IT FOR ABOUT 20 MINUTES AND RECEIEVED CHEST PHYSIOTHERAPY DURING THIS TIME. AFTER THIS TREATMENT, PT DEMONSTRATED LABORED BREATHING AND WAS PLACED BACK ON BIPAP AT 12/6 40% FIO2. WITH BIPAP ON, BREATHING APPEARS EASY AND PATIENT IS ABLE TO NOD NO WHEN ASKED IF SHE FEELS SHORT OF BREATH.
--- NOTE | 2021-08-11 15:00 | NUR ---
Initial palliative care consult: Mallika is an 81 year old with a history of COPD, HTN and hyperlipidemia. She was admitted on 08/05/21 with septic shock secondary to bilat pneumonia and new onset CHF. She lives with Germain, her S.O. for more than 20 years. Visited with Mallika in the ICU this afternoon briefly. She appears quite fatigued. She is sitting up in a bedside chair with bipap mask on. She was extubated yesterday and has required use of bipap to assist with her breathing. She is able to nod her head yes/no to questions, did not give any verbal responses during the visit. She confirmed that she would want to go back on a ventilator if she required it for maintaining her airway. She gave persmission for this health underwriter to contact Germain. Her eyes stayed closed for most of the visit, she appears very fatigued. Nursing at bedside reports araceli gtt for control of a-fib, has also had some runs of v tach. Phone call to Germain. He reports that they have been together for more than 20 years. He states that they have never discussed each others wishes re: medical care. Germain states Mallika had five children. He states four of those children have had no contact for many many years with their mother. He is unsure if they are even alive or . Mallika has one son who lives in [place] who is "An incompetent alcoholic" and has also been estranged from her. Germain states that he would like to maintain Mallika's wishes to continue with current treatments and to "make every effort" at this time. If she were to be in a "vegetative state and not be able to recognize people or talk to them" then he thinks that she would not want to continue with life sustaining efforts. He was appreciative of the update and requests that if her condition changes that staff contact him day or night and leave a message if he doesn't answer. Will plan to update staff and continue to assist with advanced care planning.
--- NOTE | 2021-08-11 18:25 | NUR ---
PT CURRENTLY ON BIPAP 06/05 40%. SHE WAS GIVEN BREAKS FROM BIPAP TODAY ON BOTH HFNC AND HHFNC. SHE TOLERATED THESE FOR SHORT PERIODS BUT AFTER ABOUT 20 MINUTES, SHE APPEARED TO HAVE LABORED BREATHING AND WAS SWITCHED BACK TO BIPAP. ON BIPAP, BREATHING IS UNLABORED. SHE CONTINUES TO HAVE MODERATE THICK WHITE SPUTUM WHICH SHE IS ABLE TO COUGH INTO HER THROAT AND CAN BE SUCTIONED WITH ORAL SUCTION. THIS AFTERNOON, BP DECREASED, MD NOTIFIED, ORDERS GIVEN FOR ALBUMIN. CARDIZEM WAS PAUSED AND RESTARTED LATER IN THE AFTERNOON PER MD. CARIDEM CURRENTLY RUNNING AT 5MG/HR WITH HR 80S-90S AND BP WNL. REMAINS EDEMATOUS, SEE ASSESSMENT FOR DETAILS. REMAINS NPO DUE TO INABILITY TO SWALLOW. NEW HEAD LACERATION FOUND THIS EVENING. ORIGIN UNKNOWN. PHOTO DOCUMENTED IN CHART. MARCO A AREA REMAINS EXCORIATED, CLEANSED AND BARRIER CREAM APPLIED. PT SIGNIFICANT OTHER WAS UPDATED VIA PHONE THIS MORNING.
--- NOTE | 2021-08-11 23:19 | NUR ---
ASSUMED CARE AT 1900 PATIENT IS ALERT AND ABLE TO NOD YES/NO TO QUESTION. FOLLOWS COMMANDS AND MOVES ALL EXTREMETIES. 02 SATS 94% ON BIPAP 14/8 FI02 40%, RR 28. LUNGS SOUNDS COARSE T/O, CPT THERAPY AND NT SUCTIONING DONE BY RT. HR A.FIB 80s-110, CARDIZEM INF 5 MG/HR. PATIENT HAD 15 BEAT RUN OF V TACH, CALL PLACED TO DR. WILKES, ORDERS TO RECHECK POTASSIUM, START AMIO INF WITH A BOLUS. BP STABLE. VALENCIA DRAINING TO GRAVITY. TURNED Q2 HOURS. CALL LIGHT IN REACH. SEE SHIFT ASSESSMENT FOR MORE DETAIL.
[2021-08-12 06:02] LABS: Anion Gap 7 mmol/L (6-16); Blood Urea Nitrogen 34 mg/dL (8-24); Bun/Creatinine Ratio 28.1 (12.0-20.0); CO2, Blood 25 mmol/L (21-32); Calcium, Blood 8.2 mg/dL (8.5-10.1); Chloride, Blood 114 mmol/L (98-108); Creatinine, Blood 1.21 mg/dL (0.40-1.00); Glomerular Filtration Rate 42 (60-); Glucose, Blood 130 mg/dL (70-99); Potassium, Blood 3.8 mmol/L (3.5-5.5); Sodium, Blood 146 mmol/L (136-145)
--- NOTE | 2021-08-12 07:38 | NUR ---
SHIFT SUMMARY PATIENT REMAINS ALERT BUT LESS COOPERATIVE WITH CARE, TRACKING AND OPENING EYES WELL MOVING ALL EXTREMETIES. PATIENT APPEARS AGITATED EVEN GRABBING MY ARM AT ONE POINT AND NOT LETTING GO. 02 SATS 94% ON BIPAP 14/8 FI02 40%, LUNGS COARSE AND FREQUENT ORAL SUCTIONING NEEDED TO CLEAR SECRETIONS. HR A.FIB 80s-110, AMIO GTT INF, NO FURTHER RUNS OF V TACH. BP STABLE. PATIENT TURNED SIDE TO SIDE Q2 HOURS. VALENCIA DRAINING TO GRAVITY.
--- NOTE | 2021-08-12 12:12 | NUR ---
CARE ASSUMED OF PT AT 0700. PT SLEEPING ON BIPAP THIS AM, ABLE TO FOLLOW COMMANDS. AIRVO PLACED AROUND 0800 50L/50%. PT RHODA WELL. SATS 90%. PT HAD SPEECH/SWALLOW EVAL THIS AM. ABLE TO TAKE PO MEDS CRUSHED IN APPLESAUCE. PT DID WELL WITH THIS BUT COUGHED ON SPOONFUL OF WATER. P.T. WORKED W PT THIS AM. WILL PLACE PT UP IN CHAIR TODAY W LIFT. DR WILKES IN TO SEE PT THIS AM AROUND 0800; FULL UPDATE GIVEN. AMIO TO BE DC'D TONIGHT AFTER 24HR REINALDO AND BE PLACED ON PO AMIO IN AM. SOME HOME MEDS RESTARTED INCLUDING LOPRESSOR.
--- NOTE | 2021-08-12 13:15 | NUR ---
PT GIVEN FULL BEDBATH. YEAST NOTED TO GROIN AND PERIAREA. SMALL LIQUID BM CLEANED. PT PLACED IN CHAIR W LIFT. PT REMAINS ON AIRVO, SATS 90% ON 50% FI02. PT VERY DROWSY BUT STILL AWAKENS TO VOICE AND ANSWERS QUESTIONS APPROPRIATELY. NO OTHER CHANGES
--- NOTE | 2021-08-12 16:19 | NUR ---
PT BACK TO BED USING LIFT. PT CONTINUES TO TOLERATE AIRVO AT 50L/50%. BP ON LOW SIDE W MAPS >65. PT HAS BEEN MOSTLY SLEEPING THIS SHIFT, VERY DROWSY. CONT TO WAKE TO VOICE AND ANSWER QUESTIONS APPROPRIATELY. NO OTHER CHANGES.
--- NOTE | 2021-08-12 17:06 | NUR ---
PT PLACED BACK ON BIPAP, SATS 89-90%, PT STILL AROUSES TO VOICE BUT SLOWER TO AROUSE AND DOESNT STAY AWAKE FOR QUESTIONS. SATS NOW 95%.
--- NOTE | 2021-08-12 21:19 | NUR ---
ASSUMED CARE PATIENT LETHARGIC, RESPONDING TO VERBAL STIMULI. NODS YES/NO TO QUESTIONS. NOT VERY COOPERATIVE WITH CARE BUT FOLLOWING COMMANDS AND ABLE TO MOVE ALL EXTREMETIES. PO MEDS HELD DUE TO PATIENT BEING LETHARGIC. DENIES PAIN. 02 SATS 93% ON BIPAP 14/8 60%. WEAK COUGH, LUNGS COARSE T/O, CPT DONE BY RT. HR A.FIB 80s-90s AMIO CURRENTLY STILL INF. BP STABLE MAP >65. VALENCIA DRAINING TO GRAVITY. PATIENT REPOSITIONED. SEE SHIFT ASSESSMENT FOR MORE DETAIL.
--- NOTE | 2021-08-13 06:11 | NUR ---
SHIFT SUMMARY PATIENT LETHARGIC THROUGH THE NIGHT, RESPONDS TO VERBAL STIMULI AND ABLE TO FOLLOW COMMANDS. 02 SATS 95% ON BIPAP 14/ FI02 70%. WEAK COUGH, LUNGS SOUND COARSE T/O. HR A.FIB, BP STABLE WITH MAP >65. AMIO gtt OFF. VALENCIA DRAINING TO GRAVITY. PATIENT TURNED Q2 HOURS. SMALL SMEAR OF BM. MARCO A AREA CLEANED AND POWDER APPLIED AGAIN. CALL LIGHT IN REACH.
--- NOTE | 2021-08-13 08:21 | NUR ---
CARE OF PT ASSUMED AT 0700. PT VERY DROWSY AND MUCH WEAKER TODAY THAN YESTERDAY. PT PLACED ON AIRVO 50L/70%, SATS 89-90%. PT'S RESP SOMEWHAT LABORED. PT UNABLE TO SPEAK D/T WEAKNESS. VERY WEAK INEFFICIENT WET COUGH. PT NOT MOVEING VERY MUCH AIR, WORSE TO RLL, FINE CRACKLES TO LLL. UNABLE TO SAFELY GIVE PO MEDS THIS AM. PT PLACED BACK ON BIPAP AFTER ORAL CARE. DR WILKES AT BEDSIDE THIS AM, FULL UPDATE GIVEN.
--- NOTE | 2021-08-13 08:41 | NUR ---
AMIODARONE GTT RESTARTED AT 0.5MG/MIN PER DR WILKES
[2021-08-13 10:02] LABS: Bun/Creatinine Ratio 26.3 (12.0-20.0); Calcium, Blood 8.5 mg/dL (8.5-10.1); Creatinine, Blood 1.14 mg/dL (0.40-1.00); Potassium, Blood 3.9 mmol/L (3.5-5.5)
[2021-08-13 10:50] LABS: PCO2 Arterial 60.6 mmHg (35-45); PO2 Arterial 70.8 mmHg (80-100)
[2021-08-13 10:53] LABS: pH Blood Arterial 7.26 (7.35-7.45)
[2021-08-13 10:59] LABS: BASOPHILS ABSOLUTE AUTO 0.02 K/mm3 (0.00-0.23); BASOPHILS PERCENT AUTO 0 % (0-2); EOSINOPHILS ABSOLUTE AUTO 0.02 K/mm3 (0.00-0.68); EOSINOPHILS PERCENT AUTO 0 % (0-6); Hematocrit 45.8 % (33.0-51.0); IMMATURE GRAN ABSOLUTE AUTO 0.08 K/mm3 (0.00-0.10); IMMATURE GRAN PERCENT AUTO 1 % (0-1); LYMPHOCYTES ABSOLUTE AUTO 0.43 K/mm3 (0.84-5.20); LYMPHOCYTES PERCENT AUTO 4 % (21-46); MONOCYTES ABSOLUTE AUTO 0.83 K/mm3 (0.16-1.47); MONOCYTES PERCENT AUTO 8 % (4-13); Mean Corpuscular HGB 31.7 pg (26.0-34.0); Mean Corpuscular HGB Conc 30.6 g/dL (31.5-36.5); Mean Corpuscular Volume 104 fL (80-100); Mean Platelet Volume 10.3 fL (9.1-12.4); NEUTROPHILS ABSOLUTE AUTO 9.29 K/mm3 (1.96-9.15); NEUTROPHILS PERCENT AUTO 87 % (41-73); Platelet Count 236 K/mm3 (150-400); RDW Standard Deviation 57.6 fL (35.1-46.3); Red Blood Cell Count 4.42 M/mm3 (3.80-5.20); White Blood Cell Count 10.67 K/mm3 (4.00-11.30)
--- NOTE | 2021-08-13 11:00 | NUR ---
CRITICAL PH OF 7.[address] WILKES. LABS REVIEWED. WILL CONTINUE TO MONITOR PT ON BIPAP /, 60% FIO2. PT'S S/O KORI GIVEN UPDATE VIA PHONE.
[2021-08-13 17:41] LABS: Mean Platelet Volume 10.1 fL (9.1-12.4); Platelet Count 208 K/mm3 (150-400)
--- NOTE | 2021-08-13 17:46 | NUR ---
PICC LINE PLACED AT 1300, RIGHT GROIN CENTRAL LINE DC'D AFTER PICC LINE PLACED. PT REMAINED LETHARGIC T/O SHIFT AND AROUND 1430 BECAME SOMNOLENT. PT HAD BEEN ON BIPAP WITH MINIMAL BREAKS FOR ORAL CARE. PT WAS INTUBATED AT 1446 USING 50MG PROPOFOL AND 50MG WILDER. 7.5 ETT, 23 @LIP. OG PLACED TO LIS. CHEST XRAY CONFIRMED OGT AND ETT PLACEMENT, READ BY DR WILKES. SHORTLY AFTER INTUBATION PT BECAME HYPOTENSIVE. A TOTAL OF 500MG PHENYLEPHRINE WAS PUSHED AT 100MG INCREMENTS. A 500CC NS BOLUS WAS ORDERED AND STOPPED AT 250CC'S PER DR WILKES BP HAD IMPROVED. AN A-LINE WAS ATTEMPTED UNSUCCESSFULLY X2 BY DR WILKES TO R AND L RADIAL SITE. HEPARIN GTT ORDERED FOR AFIB, TO BE STARTED; HEP GTT PER PHARMACY. ATIVAN 2MG GIVEN DURING A-LINE ATTEMPTS. PRECEDEX 0.2MCG STARTED FOR SEDATION. PT RESTING, APPEARS COMFORTABLE. PT DOES AWAKEN AND NOD HEAD APPROPRIATELY TO QUESTIONS. DENIES C/O PAIN. PT'S S/O WAS UPDATED BY MYSELF, [place] [employer], AND DR WILKES. CURRENT VENT SETTINGS: 14/330/45%/5. PT'S BP REMAINS STABLE BUT HAS HAD A COUPLE OF SOFT PRESSURES. LASIX GIVEN, BUT 1800 DOSE OF LOPRESSOR HELD PER DR WILKES.
[2021-08-13 18:01] LABS: International Normalized Ratio 1.05
--- NOTE | 2021-08-14 08:10 | NUR ---
ASSUMED CARE: REPORT RECEIVED FROM KENDY Hart RN. ASSUMED CARE OF THIS PT AT APPROX 0700. ON ASSESSMENT, THE PT IS LIGHTLY SEDATED W/ PRECEDEX AT 0.6 MCG/KG/HR. SHE OPENS HER EYES TO VERBAL STIMULUS & HENSON, IS NOT TRACKING OR FOLLOWING DIRECTIONS. LS COARSE, DIM IN BASES. PT ON VENT W/ SETTINGS: AC/VC 14/330/5/40% W/ O2 SATS > 89%. MONITOR SHOWS AFIB W/ HR 70-100s, BP STABLE. AMIODARONE INFUSING AT 0.5 MG/HR. OGT IN PLACE TO LIS, SMALL AMNTS GREEN-YELLOW OUTPUT NOTED IN SUCTION CANISTER & TUBING. VALENCIA PATENT/ DRAINING YELLOW URINE W/ DIURESIS PER EMAR. SKIN CONDITION OVERALL FRAGILE, INTACT. Q2H REPOSITIONING TO MAINTAIN SKIN INTEGRITY. WILL CONTINUE TO MONITOR & UPDATE NEEDED.
--- NOTE | 2021-08-14 11:25 | NUR ---
SBT: VENT SETTINGS CHANGED TO SPONTANEOUS W/ PS 10, PEEP 5 & FIO2 40%. THE PT IS TOLERATING THIS WELL W/ ADEQUATE TIDAL VOLUMES & RR. O2 SATS > 92%.
--- NOTE | 2021-08-14 13:28 | NUR ---
Review of pt with nursing and hospitalist. Pt frail and confussed she is in restraints. pt unable to sit up on her own. Speech called to reevaluate pt and put her back on NPO. Pt working with pt and states she is not doing well. attemtpted a few times to call her family phone number gives a busy signal. Review with phsyciain at this time going to discontinue the evening librium and and see if she is more alert. Her kps score is 40%. physician is going to diacuss prognsois with family will follow up. if not rehabable or swallow worsens will discuss hospice.
--- NOTE | 2021-08-14 18:17 | NUR ---
SHIFT SUMMARY: NO ACUTE CHANGES SINCE PRIOR UPDATES. PT AWAKENS EASILY TO VERBAL STIMULUS, IS ANSWERING YES/NO QUESTIONS INTERMITTENTLY BY NODDING HEAD & TRACKS W/ EYES. LS DIM IN BASES, VENT SETTINGS: SPONTANEOUS W/ PS 10, PEEP 5 & 40% FIO2. O2 SATS > 90%. MONITOR SHOWS AFIB W/ HR 70-100s, BP STABLE. OGT IN PLACE W/ TUBE FEEDS AT 35 ML/HR, NO RESIDUALS. ADVANCED FROM 25 ML/HR AT APPROX 1600, CAN BE ADVANCED TO GOAL RATE OF 45 ML/HR AT APPROX 2000 TONIGHT. VALENCIA PATENT/ DRAINING YELLOW URINE W/ DIURESIS PER EMAR - SEE I&O. SKIN OVERALL INTACT, Q2H REPOSITIONING TO MAINTAIN SKIN INTEGRITY. WILL CONTINUE TO MONITOR & REPORT OFF TO ONCOMING RN.
[2021-08-15 01:40] LABS: BASOPHILS ABSOLUTE AUTO 0.04 K/mm3 (0.00-0.23); BASOPHILS PERCENT AUTO 0 % (0-2); EOSINOPHILS ABSOLUTE AUTO 0.12 K/mm3 (0.00-0.68); EOSINOPHILS PERCENT AUTO 1 % (0-6); Hematocrit 38.3 % (33.0-51.0); Hemoglobin 12.5 g/dL (11.5-16.0); IMMATURE GRAN ABSOLUTE AUTO 0.09 K/mm3 (0.00-0.10); IMMATURE GRAN PERCENT AUTO 1 % (0-1); LYMPHOCYTES PERCENT AUTO 9 % (21-46); MONOCYTES ABSOLUTE AUTO 0.57 K/mm3 (0.16-1.47); MONOCYTES PERCENT AUTO 6 % (4-13); Mean Corpuscular HGB Conc 32.6 g/dL (31.5-36.5); Mean Platelet Volume 11.1 fL (9.1-12.4); NEUTROPHILS ABSOLUTE AUTO 7.73 K/mm3 (1.96-9.15); NEUTROPHILS PERCENT AUTO 83 % (41-73); Platelet Count 161 K/mm3 (150-400); RDW Coefficient Variation 14.3 % (11.7-14.2); RDW Standard Deviation 51.1 fL (35.1-46.3); Red Blood Cell Count 3.91 M/mm3 (3.80-5.20); White Blood Cell Count 9.35 K/mm3 (4.00-11.30)
[2021-08-15 01:41] LABS: Mean Corpuscular Volume 98 fL (80-100)
[2021-08-15 01:47] LABS: Albumin, Blood 2.5 g/dL (3.4-5.0); Albumin/Globulin Ratio 0.8 (0.8-1.8); Bilirubin, Direct 0.2 mg/dL (0.0-0.3); Bilirubin, Indirect 0.3 mg/dL (0.1-0.7); Bilirubin, Total 0.5 mg/dL (0.1-1.0); Bun/Creatinine Ratio 26.6 (12.0-20.0); Creatinine, Blood 0.98 mg/dL (0.40-1.00); Globulin, Blood 3.3 g/dL (2.2-4.0); Phosphorus, Blood 1.1 mg/dL (2.5-4.9); Total Protein, Blood 5.8 g/dL (6.4-8.2)
[2021-08-15 02:15] LABS: Potassium, Blood 2.4 mmol/L (3.5-5.5)
--- NOTE | 2021-08-15 06:52 | NUR ---
SHIFT SUMMERY AT APPX 510AM PT WAS TURNED FOR BATH AND OXYGEN SATURATION BEGAN TO DROP. I BEGAN TO BAG THE PT VIA ETT AND SATS RECOVERED TO 98% WHILE BEING BAGGED. HOWEVER WHEN PT WAS PLACED BACK ON THE VENT SHE WAS UNABLE TO MAINTAIN HER OXYGEN SATURATIONS AND WAS NOT MOVING AIR. BREATH SOUNDS COULD BE HEARD BILATERALLY WHEN PT WAS BEING BAGGED, BUT NOT WHILE ON VENT. RESP THERAPY WAS CALLED TO BEDSIDE TO ASSIST. DR COOMBS WAS CALLED. A REPEAT CHEST XRAY WAS DONE. ETT REMAINED IN GOOD POSITION W/NO APPARENT CUFF LEAK. VENTILATOR WAS SWAPPED OUT AND RT TRIED VARIOUS MODES/SETTINGS AND PT BEGAN TO VENTILATE WITH ON OF THE CHANGES. PT WAS ON PRECEDEX FOR SEDATION BUT WAS CLAMPING DOWN ON HER TUBE AND FIGHTING THE VENT. DR COOMBS WAS NOTIFIED AND ORDERS FOR SEDATION WERE GIVEN WELL ORDERS FOR LEVOPHED IF NEEDED FOR BP. PT CONTINUES ON HEPARIN GTT AND AMIODORONE GTT WELL. BEFORE PROPOFOL WAS STARTED PT WAS FOLLOWING COMMANDS, ASKED HER TO WIGGLE HER TOES AND PT WAS ABLE TO UNDERSTAND AND DO SO. PT DID BECOME HYPOTENSICE AFTER PROPOFOL WAS STARTED SO LEVOPHED WAS STARTED WELL. PT IS SEDATED AT THIS TIME TOLERATING THE VENT WELL W/VS W/IN ACCEPTABLE LIMITS.
--- NOTE | 2021-08-15 08:47 | NUR ---
ASSUMED CARE / DR COOMBS: REPORT RECEIVED FROM KENDY Hart RN. ASSUMED CARE OF THIS PT AT APPROX 0700. ON ASSESSMENT, THE PT IS LIGHTLY SEDATED W/ PROPOFOL, AWAKENS EASILY TO VERBAL OR TACTILE STIMULUS & IS ABLE TO ANSWER YES/ NO QUESTIONS APPROPRIATELY BY NODDING HEAD, SHE IS ALSO ABLE TO FOLLOW DIRECTIONS W/O DIFFICULTY. LS ARE DIM IN BASES, PT ON VENT W/ SETTINGS: AC/VC 14/330/5/60% W/ O2 SATS > 92%. MONITOR SHOWS AFLUTTER W/ HR 80s, LEVOPHED INFUSING AT 2 MCG/MIN FOR HYPOTENSION. LISINOPRIL & COREG GIVEN VIA OGT THIS AM PER DR COOMBS. TUBE FEEDS PLACED ON STANDBY THIS AM DURING PT EVENT - SEE PRIOR RN NOTE. FEEDINGS ALSO RESUMED PER PROVIDER, CURRENTLY INFUSING AT 35 ML/HR, WILL ADVANCE TO 45 ML/HR AT APPROX 1200 IF PT CONTINUES TO TOLERATE. VALENCIA PATENT/ DRAINING YELLOW URINE. SKIN CONDITION OVERALL FRAGILE, INTACT. Q2H REPOSITIONING TO MAINTAIN SKIN INTEGRITY. DR COOMBS AT BEDSIDE THIS AM TO EVAL PT. HEPARIN DRIP HAS BEEN D/C'd & LOVENOX ORDERED, FIRST DOSE NOW. HE WOULD LIKE LEVOPHED TITRATED TO MAINTAIN MAP 60 OR GREATER FOR THIS PT. LIMITED ECHO ORDERED & DR GORDON CONSULTED FOR THIS PT R/T PERSISTANT AFIB/ AFLUTTER & HYPOTENSION. WILL CONTINUE TO MONITOR & UPDATE NEEDED.
--- NOTE | 2021-08-15 09:08 | NUR ---
DR GORDON: PROVIDER AT BEDSIDE THIS AM TO EVAL PT PER DR COOMBS CONSULTATION. HE HAS REVIEWED THE PT's MEDICATIONS & STS HE WILL BE MAKING CHANGES.
[2021-08-15 10:40] LABS: Bun/Creatinine Ratio 24.8 (12.0-20.0); Calcium, Blood 7.8 mg/dL (8.5-10.1); Creatinine, Blood 1.01 mg/dL (0.40-1.00); Potassium, Blood 3.9 mmol/L (3.5-5.5)
--- NOTE | 2021-08-15 17:26 | NUR ---
SHIFT SUMMARY: NO ACUTE CHANGES SINCE PRIOR UPDATES. PT REMAINS LIGHTLY SEDATED W/ PROPOFOL, WILL OPEN EYES IF PROMPTED. IS ABLE TO FOLLOW DIRECTIONS & ANSWER YES/ NO QUESTIONS BY NODDING HEAD. LS DIM IN BASES, VENT SETTINGS: AC/VC 14/330/5/50% W/ O2 SATS > 90% ON AVG. MONITOR SHOWS AFIB W/ HR 70-80s, LEVOPHED INFUSING AT 6 MCG/MIN TO MAINTAIN MAP > 60, PER ORDERS. OGT IN PLACE W/ TUBE FEEDS INFUSING AT GOAL RATE OF 45 ML/HR, LOW RESIDUALS - SEE I&O. VALENCIA PATENT/ DRAINING YELLOW URINE W/ SMALL AMNT OUTPUT THIS SHIFT, NO DIURESIS TODAY. SKIN CONDITION OVERALL INTACT, Q2H REPOSITIONING TO MAINTAIN SKIN INTEGRITY. WILL CONTINUE TO MONITOR & REPORT OFF TO ONCOMING RN.
--- NOTE | 2021-08-15 18:21 | NUR ---
Mutiple conversations today with Germain her life partner. Dr fajardo had an extensive conversation with him regarding recusitation and prognosis and trach and peg tubes. He relayed that with her comorbid conditions she might not tolerate a trach. He rlayed she would have to go [facility] or [facility]. Called Germain a few hours after the dificult conversation to help him talk it out and respond. Had him call her and held the phone to her ear. He agreed to make her a DNR. Germain called back a few hours later and stated that she has been the center of my universe for twenty years. After great thought he knows she would not want the peg and trach. We discussed that if she does not recover and come off the ventilator we will make her comfort care to prevent her from suffering and to allow him some time with her. advised icu staff probably best to bring him in tomorrow to see her so he can make a decision.
--- NOTE | 2021-08-15 22:01 | NUR ---
ASSUMED CARE RECEIVED REPORT FROM MERE MACIEL AT 1900. PT IS INTUBATED AND SEDATED. PROPOFOL AT 18MCG/KG/MIN, SHE IS ABLE TO OPEN EYES TO VOICE, FOLLOW SIMPLE COMMANDS AND NOD YES/NO TO QUESTIONS. VENT IS AC/VC 14/330/5/40%, SPO2 >96%. SHE IS NOTED TO HOLD HER BREATH WITH TURNING, AND DID SO DURING BED BATH WITH PEAK PRESSURES AND LOW VOLUME ALARMING, HOWEVER ONCE SUPINE, SHE RETURNS TO NORMAL BREATHING PATTERN. HR IS AFIB, RATE IN 80-90'S, AMIODARONE GTT 0.5MG/HR. LEVOPHED AT 6MCG/MIN TO MAINTAIN MAP >60. MODERATE EDEMA PRESENT X4 EXTREMITIES. OG WITH JEVITY 1.2 RUNNING AT GOAL OF 45ML/HR AND 200ML Q4 H2O FLUSHES FOR PREVENTION OF HYPERNATREMIA. RESIDUAL OF 20ML. RECTAL TUBE PLACED DURING BED BATH FOR 3RD LIQUID, LARGE LOOSE STOOL OF THE DAY. MARCO A AREA IS REDDENED, CALAZIME APPLIED. VALENCIA PATENT, DRAINING DARK CLEAR YELLOW URINE. FOAM DRESSING IN PLACE TO PREVIOUS RIGHT GROIN SITE. PICC TO NAOMI, INFUSING WITH GTT'S. PARTNER, KORI, UPDATED THIS EVENING. ORDERS REVIEWED, WILL TREAT PRESCRIBED.
--- NOTE | 2021-08-16 06:44 | NUR ---
PT REMAINS INTUBATED AND LIGHTLY SEDATED. SHE RESPONDS TO VOICE, AND OPENS EYES SPONTANEOUSLY. FOLLOWS SIMPLE COMMANDS AND NODS YES/NO TO QUESTIONS. PROPOFOL INCREASED TO 20MCG/KG/MIN TO HELP WITH VENT COMPLIANCE. AFEBRILE. VENT REMAINS AC/VC 14/330/5/40%, SPO2 >96%. LUNGS CLEAR, DIM IN BASES, SMALL AMOUNT OF THICK, WHITE AND PINK SPOTTED SECRETIONS WITH ETT SUCTION. HR REMAINS AFIB, RATE CONTROLLED IN 80-100'S. AMIODARONE GTT AT 0.5MG/HR. LEVOPHED AT 5MCG/MIN, BP STABLE WITH MAP >60. MODERATE EDEMA IN BLE. OG REMAINS AT GOAL OF 45ML/HR WITH Q4 200ML H20 FLUSH. RECTAL TUBE WITH LIQUID BROWN STOOL, PATENT DRAINING TO GRAVITY. VALENCIA PATENT DRAINING JAYANT URINE TO GRAVITY, 400ML OUT THIS SHIFT. WILL REPORT TO ONCOMING SHIFT.
[2021-08-16 07:07] LABS: Albumin, Blood 2.4 g/dL (3.4-5.0); Anion Gap 3 mmol/L (6-16); Blood Urea Nitrogen 29 mg/dL (8-24); Bun/Creatinine Ratio 27.6 (12.0-20.0); CO2, Blood 32 mmol/L (21-32); Calcium, Blood 7.4 mg/dL (8.5-10.1); Chloride, Blood 109 mmol/L (98-108); Creatinine, Blood 1.05 mg/dL (0.40-1.00); Glomerular Filtration Rate 50 (60-); Glucose, Blood 174 mg/dL (70-99); Phosphorus, Blood 2.6 mg/dL (2.5-4.9); Potassium, Blood 3.4 mmol/L (3.5-5.5); Sodium, Blood 144 mmol/L (136-145)
[2021-08-16 07:13] LABS: BASOPHILS ABSOLUTE AUTO 0.08 K/mm3 (0.00-0.23); BASOPHILS PERCENT AUTO 1 % (0-2); EOSINOPHILS ABSOLUTE AUTO 0.51 K/mm3 (0.00-0.68); EOSINOPHILS PERCENT AUTO 4 % (0-6); Hematocrit 38.1 % (33.0-51.0); Hemoglobin 12.1 g/dL (11.5-16.0); IMMATURE GRAN ABSOLUTE AUTO 0.14 K/mm3 (0.00-0.10); IMMATURE GRAN PERCENT AUTO 1 % (0-1); LYMPHOCYTES ABSOLUTE AUTO 0.96 K/mm3 (0.84-5.20); LYMPHOCYTES PERCENT AUTO 8 % (21-46); MONOCYTES PERCENT AUTO 5 % (4-13); Mean Corpuscular HGB 31.8 pg (26.0-34.0); Mean Corpuscular HGB Conc 31.8 g/dL (31.5-36.5); Mean Corpuscular Volume 100 fL (80-100); Mean Platelet Volume 10.9 fL (9.1-12.4); NEUTROPHILS ABSOLUTE AUTO 9.96 K/mm3 (1.96-9.15); NEUTROPHILS PERCENT AUTO 81 % (41-73); Platelet Count 148 K/mm3 (150-400); RDW Coefficient Variation 14.6 % (11.7-14.2); Red Blood Cell Count 3.81 M/mm3 (3.80-5.20); White Blood Cell Count 12.25 K/mm3 (4.00-11.30)
--- NOTE | 2021-08-16 08:00 | NUR ---
PT REMAINS SEDATED AND INTUBATED. PT AWAKE AND ALERT ON PROPOFOL @ 20 MCG/KG/MIN. PT FOLLOWS COMMANDS AND NODS APPROPRIATELY TO "YES" OR "NO" QUESTIONS.ECG CONTINUES AFIB WITH RATE 90-100'S-AMIODARONE DRIP @ 0.5 MG/HR. TITRATING LEVOPHED DRIP TO MAP 60-CURRENTLY AT 5 MCG/MIN. 3+ EDEMA CONTINUES THROUGH OUT. LUNGS DIMINISHED IN THE BASES WITH A FEW FINE CRACKLE TO THE LEFT BASE. ETT TO VENT: AC/VC 14, TV 330, FIO2 40%, PEEP 5-SPO2>90%. ETT SUCTION PRODUCTIVE OF SMALL AMOUNT OF WHITISH/PINK TINGED SPUTUM. PT TOLERATING OGTF @ 45 CC/HR WELL. 15 CC RESIDUAL REFED. RECTAL TUBE WITH SMALL AMOUNT OF BROWN, LIQUID STOOL-AM STOOL SOFTENERS HELD. VALENCIA TO BSD WITH SMALL AMOUNT OF CLEAR, YELLOW URINE TO BSD. SKIN IS PALE AND FRAIL. MARCO A AREA WITH YEAST-LIKE RASH-ANTIFUNGAL POWDER APPLIED.
--- NOTE | 2021-08-16 09:10 | NUR ---
MAP TRENDING 70-80'S-LEVOPHED TITRATED DOWN TO 3 MCG/MIN. DR. COOMBS IN TO SEE PT. FULL UPDATE GIVEN. PROPOFOL DECREASED TO 10 MCG/KG/MIN-PT CONTNUES TO BE ABLE TO FOLLOW COMMANDS. PT PLACED ON PS TRIAL-PS 10.
--- NOTE | 2021-08-16 12:00 | NUR ---
PT REMAINS ON PS 10-TOLERATED WELL. SATS>90% ON FIO2 40%. PT IS AWAKE AND TEARFUL AT TIMES. SHE NODDED "YES" WHEN ASKED IF SHE IS FRUSTRATED. PT CONTINUES TO FOLLOW COMMANDS AND COOPERATE WITH CARE. PROPOFOL @ 10 MCG/KG/MIN. PT NODS "NO" TO PAIN. ECG CONTINUES AFIB WITH RATE 80'S. AMIODARONE PER TUBE HAS BEEN GIVEN AND AMIODARONE DRIP OFF SINCE APROXIMATELY 0900. MAP TRENDING 65-70 WITH LEVOPHED @ 3 MCG/MIN. FIRST DOSES OF MIDODRINE, COREG, AND ZESTRIL HAVE BEEN GIVEN. WILL TIRATE LEVOPHED TO OFF TOLERATED. PT CONTINUES TO TOLERATE OGTF WELL. RECTAL TUBE WITH SMALL AMOUNT OF BROWN, LIQUID STOOL. MARCO A AREA REMAINS [id number] RASH. DIFLUCAN TO BE GIVEN PER TUBE AND ANTIFUNGAL POWDER IN PLACE. PT SPOUSE HAS BEEN CONTACTED BY PALLIATIVE CARE. PLAN FOR HIM TO VISIT TODAY TO DISCUSS END OF LIFE CARE AND DECISIONS.
--- NOTE | 2021-08-16 12:45 | NUR ---
PT SPOUSE AT BEDSIDE. BOTH DR. COOMBS AND PALLIATIVE CARE HAVE SPOKE WITH HIM. PT TV 175-240. DR. COOMBS AWARE-PT RETURNED TO PREVIOUS VENT SETTINGS: AC/VC 14, TV 330, PEEP 5, FIO2 40%. PROPOFOL INCREASED TO 20 MCG/KG/MIN.
--- NOTE | 2021-08-16 14:55 | NUR ---
DR. COOMBS SPOKE WITH PT SPOUSE REGARDING COMFORT CARE. PLAN FOR DECISION TO BE MADE BY SATURDAY. PT SPOUSE PLANS TO THINK OVER THE THINGS DISCUSSED WITH DR. MALVIN ROBERTS, AND VISIT TOMORROW FROM -.
--- NOTE | 2021-08-16 16:00 | NUR ---
1600 ASSESSMENT GROSSLY UNCHANGED. MAP REMAIN ABOVE 60, TITRATING DOWN LEVOPHED SLOWLY, CURRENTLY AT 1 MCG. HR MAINTAINING IN THE 80-90'S, REMAINS IN A-FIB.
--- NOTE | 2021-08-16 18:24 | NUR ---
PATIENT IS RESTING QUIETLY, COMPLIANT WITH THE VENTILATOR. VSS.
--- NOTE | 2021-08-16 19:00 | NUR ---
ASSUMPTION OF CARE PT REMAINS INTUBATED WITH VENT SETTINGS AC/VC 16/330/5/40%. SHE IS RECEIVING PROPOFOL 20MCG/KG/MIN, LEVOPHED 2MCG/MIN, AND NS TKO. OPENS EYES SPONTANEOUSLY AND FOLLOWS SIMPLE COMMANDS. TUBE FEEDING INFUSING AT GOAL RATE WITH MINIMAL RESIDUALS. VALENCIA PATENT AND DRAINING CLEAR/YELLOW URINE. RECTAL TUBE CONTINUES TO DRAIN LIGHT BROWN LIQUID STOOL TO GRAVITY. VSS AT THIS TIME. SEE SHIFT ASSESSMENT.
[2021-08-17 05:07] LABS: BASOPHILS ABSOLUTE AUTO 0.05 K/mm3 (0.00-0.23); BASOPHILS PERCENT AUTO 0 % (0-2); EOSINOPHILS ABSOLUTE AUTO 0.39 K/mm3 (0.00-0.68); EOSINOPHILS PERCENT AUTO 3 % (0-6); Hematocrit 36.5 % (33.0-51.0); Hemoglobin 11.3 g/dL (11.5-16.0); IMMATURE GRAN ABSOLUTE AUTO 0.09 K/mm3 (0.00-0.10); IMMATURE GRAN PERCENT AUTO 1 % (0-1); LYMPHOCYTES ABSOLUTE AUTO 0.87 K/mm3 (0.84-5.20); LYMPHOCYTES PERCENT AUTO 7 % (21-46); MONOCYTES ABSOLUTE AUTO 0.44 K/mm3 (0.16-1.47); MONOCYTES PERCENT AUTO 4 % (4-13); Mean Corpuscular HGB 31.2 pg (26.0-34.0); Mean Corpuscular Volume 101 fL (80-100); Mean Platelet Volume 10.9 fL (9.1-12.4); NEUTROPHILS ABSOLUTE AUTO 10.69 K/mm3 (1.96-9.15); NEUTROPHILS PERCENT AUTO 85 % (41-73); Platelet Count 128 K/mm3 (150-400); RDW Coefficient Variation 14.5 % (11.7-14.2); RDW Standard Deviation 53.6 fL (35.1-46.3); Red Blood Cell Count 3.62 M/mm3 (3.80-5.20); White Blood Cell Count 12.53 K/mm3 (4.00-11.30)
[2021-08-17 05:33] LABS: Albumin, Blood 2.2 g/dL (3.4-5.0); Anion Gap 4 mmol/L (6-16); Blood Urea Nitrogen 27 mg/dL (8-24); Bun/Creatinine Ratio 27.2 (12.0-20.0); CO2, Blood 31 mmol/L (21-32); Calcium, Blood 7.8 mg/dL (8.5-10.1); Chloride, Blood 109 mmol/L (98-108); Creatinine, Blood 0.99 mg/dL (0.40-1.00); Glomerular Filtration Rate 53 (60-); Glucose, Blood 152 mg/dL (70-99); Phosphorus, Blood 2.1 mg/dL (2.5-4.9); Potassium, Blood 3.6 mmol/L (3.5-5.5); Sodium, Blood 144 mmol/L (136-145)
--- NOTE | 2021-08-17 06:03 | NUR ---
SHIFT SUMMARY PT REMAINS INTUBATED WITH VENT SETTINGS AC/VC 14/330/5/40%. PT RECEIVING LEVOPHED 2MCG/MIN, PROPOFOL 20MCG/KG/MIN, NS TKO. PT WAKENS EASILY TO VERBAL STIMULI. ANSWERS QUESTIONS BY NODDING HEAD YES/NO. SHE DENIES PAIN OR DISCOMFORT. TUBE FEEDING INFUSING AT GOAL RATE WITH VERY MINIMAL RESIDUALS. VALENCIA PATENT AND DRAINING, SHIFT OUPUT OF 650ML JAYANT URINE. RECTAL TUBE CONTINUES TO DRAIN LIGHT BROWN LIQUID STOOL WITH OUTPUT OF 50ML. K PAD IN PLACE ON R ARM DUE TO REDNESS AND BRUISING. WILL REPORT TO ONCOMING RN.
[2021-08-17 12:46] LABS: Influenza A, PCR NEGATIVE (NEGATIVE); Influenza B, PCR NEGATIVE (NEGATIVE); Resp Syncytial Virus, PCR NEGATIVE (NEGATIVE); SARS-Cov-2 (COVID-19) PCR, MMC NEGATIVE (NEGATIVE)
--- NOTE | 2021-08-17 18:12 | NUR ---
Assumed care at 0700. Intubated and lightly sedated; pt is appropriate, following commands, denies pain. Propofol and levophed titrated down to off. During this time, extensive conversations had with the patient, this RN, Dr. Watkins and Dr. Greco regarding code status and possible trach and peg. The patient answered all yes/no quesitons appropriatly and communicated via writing. Pt agreed that she wanted to be full code, and that she wanted to have a trach and peg. Later, the patient asked to have time to think about her decision. Procedure planned for tomorrow, pending the patients decision. Pt up to the chair via ceiling lift. SBT attempted; light sedation with propofol required. tolerated for two hours, placed back on a rate. Pts sig. other at the bedside, agreeable with her decision regarding the trach. Pt back to bed, resting comfotably.
--- NOTE | 2021-08-17 19:00 | NUR ---
ASSUMPTION OF CARE PT REMAINS INTUBATED WITH VENT SETTINGS AC/VC 14/330/5/40%. SHE PARTICIPATED IN A SBT TODAY BUT WORE OUT AND TIDAL VOLUMES DECREASED. SHE IS ON PROPOFOL 10MCG/KG/MIN. SHE WAKENS EASILY TO VERBAL STIMULI AND HAS HAD WRIST RESTRAINTS OFF FOR MOST OF DAY. SHE IS MORE ALERT TODAY AND ACTIVE IN CONVERSATION BY NODDING HEAD, MAKING FACIAL EXPRESSIONS AND MOVING EXTREMITIES. TUBE FEEDING CONTINUES TO INFUSE AT GOAL RATE. VALENCIA PATENT AND DRAINING YELLOW/CLEAR URINE. RECTAL TUBE DRAINING LIGHT BROWN LIQUID STOOL TO GRAVITY. PLAN FOR TRACH AND PEG TOMORROW. TUBE FEEDINGS WILL BE STOPPED AT MIDNIGHT, AM DOSE OF LOVENOX TO BE HELD. SEE SHIFT ASSESSMENT.
--- NOTE | 2021-08-17 23:42 | NUR ---
UPDATE TUBE FEEDING STOPPED AT THIS TIME IN PREPARATION OF PROCEDURE. THERE WAS 5ML OF FORMULA RESIDUALS. WHEN TOLD THE REASONING, SHE NODDED HER HEAD "YES". WHEN ASKED IF SHE IS STILL AGREEABLE WITH PLAN FOR TRACH AND PEG WITH DR ROJAS SHE NODS HER HEAD "YES". I ASKED IF SHE HAD ANY QUESTIONS OR CONCERNS REGARDING THE PROCEDURE AND SHE SHOOK HER HEAD "NO". SHE DENIES ANY PAIN OR DISCOMFORT AT THIS TIME. REPOSITIONED AND RESTING COMFORTABLY.
[2021-08-18 04:07] LABS: BASOPHILS ABSOLUTE AUTO 0.04 K/mm3 (0.00-0.23); BASOPHILS PERCENT AUTO 0 % (0-2); EOSINOPHILS ABSOLUTE AUTO 0.39 K/mm3 (0.00-0.68); EOSINOPHILS PERCENT AUTO 4 % (0-6); Hematocrit 36.4 % (33.0-51.0); Hemoglobin 11.1 g/dL (11.5-16.0); IMMATURE GRAN PERCENT AUTO 1 % (0-1); LYMPHOCYTES ABSOLUTE AUTO 0.88 K/mm3 (0.84-5.20); LYMPHOCYTES PERCENT AUTO 8 % (21-46); MONOCYTES ABSOLUTE AUTO 0.45 K/mm3 (0.16-1.47); MONOCYTES PERCENT AUTO 4 % (4-13); Mean Corpuscular HGB 30.8 pg (26.0-34.0); Mean Corpuscular HGB Conc 30.5 g/dL (31.5-36.5); Mean Corpuscular Volume 101 fL (80-100); Mean Platelet Volume 11.4 fL (9.1-12.4); NEUTROPHILS ABSOLUTE AUTO 8.99 K/mm3 (1.96-9.15); NEUTROPHILS PERCENT AUTO 83 % (41-73); Platelet Count 138 K/mm3 (150-400); RDW Coefficient Variation 14.5 % (11.7-14.2); RDW Standard Deviation 54.1 fL (35.1-46.3); White Blood Cell Count 10.85 K/mm3 (4.00-11.30)
[2021-08-18 04:22] LABS: Albumin, Blood 2.2 g/dL (3.4-5.0); Anion Gap 3 mmol/L (6-16); Blood Urea Nitrogen 24 mg/dL (8-24); Bun/Creatinine Ratio 26.4 (12.0-20.0); CO2, Blood 31 mmol/L (21-32); Chloride, Blood 109 mmol/L (98-108); Creatinine, Blood 0.91 mg/dL (0.40-1.00); Glomerular Filtration Rate 59 (60-); Glucose, Blood 98 mg/dL (70-99); Phosphorus, Blood 2.2 mg/dL (2.5-4.9); Potassium, Blood 3.9 mmol/L (3.5-5.5); Sodium, Blood 143 mmol/L (136-145)
--- NOTE | 2021-08-18 05:48 | NUR ---
SHIFT SUMMARY PT REMAINS INTUBATED WITH UNCHANGED VENT SETTINGS 14/330/5/40%. SHE CONTINUES TO RECEIVE PROPOFOL 10MCG/KG/MIN AND NS TKO. SHE IS ALERT AND ORIENTED, ANSWERS QUESTIONS APPROPRIATELY BY NODDING HEAD YES/NO. SHE HAS HAD WRIST RESTRAINTS OFF SINCE YESTERDAY AM AND REMAINS APPROPRIATE. TUBE FEEDING WAS STOPPED AT MIDNIGHT. VALENCIA PATENT AND DRAINING. SHE DID NOT HAVE ANY OUTPUT FROM THE RECTAL TUBE. VSS. SHE HAS DENIED PAIN OR DISCOMFORT THROUGHOUT NIGHT. PLAN IN PLACE FOR TRACH AND PEG TODAY. HOLD AM DOSE OF LOVENOX. WILL REPORT TO ONCOMING RN.
--- NOTE | 2021-08-18 09:23 | NUR ---
Received call from Primary RN Courtney and discussed case. Pt has elected for Peg-Tube placment and trach placement. Courtney expresses concerns that Pt may not completely understand everything involved with decision. Caremanager Devang spoke with Pt yesterday and discussed the need for potential halfway SNF at [facility] Pt resting in bed and intubated. Pt awake and alert. Pt able to nod her head yes and no. Asked Pt simple questions such as "is there a television in this room", and "Am I wearing a watch". Pt nods her head appropirately to questions. Pt denies pain at this time. Palliative Care will remain available.
--- NOTE | 2021-08-18 09:52 | NUR ---
08/18/21 0952 Janki Hickman MONITOR INTACT WITH CONTINUOUS PULSE OXIMETRY AND INTERMITTENT BP AT START OF PROCEDURE.
--- NOTE | 2021-08-18 10:25 | NUR ---
Propofol turned off at start of shift. Patient awake and alert, following all comands, communicating via yes/no nods and writing. Dr. Greco at the bedside, consent obtained for PEG and trach placement. PEG performed without complication by Dr. Greco; pt paralyzed and sedated by anestesology at the bedside through the procedure. PEG to be clamped; meds given after 6 hrs, feeds after 12 hrs. Procedure finished at 1000. Propofol gtt left on for patient comfort while paralytic wears off.
--- NOTE | 2021-08-18 14:38 | NUR ---
Bedside trach performed by Dr. Greco and Dr. Rossi. pt sedated with propofol gtt, given 50mcg fentanyl and 80mg zane pre-procedure. Pt tolerated well; 8.0 shiley placed, sutured in place. Pt remains sedated on propofol gtt. Sig. Other Germain at the bedside, updated on pt status.
--- NOTE | 2021-08-18 20:00 | NUR ---
ASSUMED CARE OF PT AT 1915. REPORT RECEIVED AT BEDSIDE. PT HAS HAD TRACH PLACED THIS DAY. THIS TO VENT. PT TOLERATING THIS WELL. MAINTAINS SATURATIONS > 90 PERCENT. SHAKES HER HEAD 'NO' FOR QUESTION OF PAIN. WILL REVIEW CHART AND PLAN OF CARE FOR THIS PT.
--- NOTE | 2021-08-19 | NUR ---
PT USES HER CALL LIGHT OFTEN FOR HOB CHANGES. DOES WRITE OUT ONCE THAT WAS READABLE THAT STATES THAT SHE WANTS TO GO HOME. TEACHING HAS BEEN DONE WITH PT. EXPLAINED PROCESS AFTER HAVING TRACH PLACED. PEG TUBE PATENT AND MEDICATIONS GIVEN WITHOUT ISSUES. WILL CONTINUE TO MONITOR PT.
[2021-08-19 04:36] LABS: BASOPHILS ABSOLUTE AUTO 0.05 K/mm3 (0.00-0.23); BASOPHILS PERCENT AUTO 1 % (0-2); EOSINOPHILS ABSOLUTE AUTO 0.23 K/mm3 (0.00-0.68); EOSINOPHILS PERCENT AUTO 3 % (0-6); Hematocrit 37.6 % (33.0-51.0); Hemoglobin 11.7 g/dL (11.5-16.0); IMMATURE GRAN ABSOLUTE AUTO 0.08 K/mm3 (0.00-0.10); IMMATURE GRAN PERCENT AUTO 1 % (0-1); LYMPHOCYTES ABSOLUTE AUTO 0.73 K/mm3 (0.84-5.20); LYMPHOCYTES PERCENT AUTO 8 % (21-46); MONOCYTES PERCENT AUTO 7 % (4-13); Mean Corpuscular HGB 31.4 pg (26.0-34.0); Mean Corpuscular HGB Conc 31.1 g/dL (31.5-36.5); Mean Corpuscular Volume 101 fL (80-100); Mean Platelet Volume 11.4 fL (9.1-12.4); NEUTROPHILS ABSOLUTE AUTO 7.56 K/mm3 (1.96-9.15); NEUTROPHILS PERCENT AUTO 82 % (41-73); Platelet Count 175 K/mm3 (150-400); RDW Coefficient Variation 14.6 % (11.7-14.2); RDW Standard Deviation 54.3 fL (35.1-46.3); Red Blood Cell Count 3.73 M/mm3 (3.80-5.20); White Blood Cell Count 9.25 K/mm3 (4.00-11.30)
[2021-08-19 04:52] LABS: Albumin, Blood 2.3 g/dL (3.4-5.0); Anion Gap 6 mmol/L (6-16); Blood Urea Nitrogen 25 mg/dL (8-24); Bun/Creatinine Ratio 24.5 (12.0-20.0); CO2, Blood 28 mmol/L (21-32); Calcium, Blood 8.5 mg/dL (8.5-10.1); Chloride, Blood 109 mmol/L (98-108); Creatinine, Blood 1.02 mg/dL (0.40-1.00); Glomerular Filtration Rate 52 (60-); Glucose, Blood 89 mg/dL (70-99); Magnesium, Blood 1.8 mg/dL (1.6-2.4); Phosphorus, Blood 3.3 mg/dL (2.5-4.9); Sodium, Blood 143 mmol/L (136-145)
--- NOTE | 2021-08-19 06:30 | NUR ---
PT HAS SLEPT SOME THIS NIGHT. MADE OF USE OF POINTER BOARD FOR PT TO USE FOR COMMUNICATON. MOST REQUESTS ARE TO BE MOVED IN BED. WHEN PT IS TRYING TO WRITE NEEDS ON PAPER, UNFORTUNATELY PT DOES NOT WRITE TO WHERE IT IS READABLE. WILL RESTART TUBE FEEDING THIS AM. WILL CONTINUE TO MONITOR PT, AND WILL REPORT OFF TO ONCOMING RN.
--- NOTE | 2021-08-19 14:41 | NUR ---
Pt has both trach and PEG in place, surgical intervention yesterday. Pt up working with PT at this time, and is at bedside. No changes needed to care plan.
--- NOTE | 2021-08-19 18:20 | NUR ---
Patient off all sedation, awake and alert today. comminicating via nodding, writitng and commucation board. Placed in chair position this am, tolerated well but became increasingly anxious and irriated, pulling on line and pulling off the ventilatior from her trach. tolerated SBT for less than two hours due to tachypnea and fewquent dasaturations with increased wob. Precedex gtt started and maintained at 0.2; pt much more calm while still remaining alert. Sig other Germain at the bedside in the afternoon. Worked with pt; dangled on the edge of bed. Rectal tube removed. pt remained stable thorugh the shift.
--- NOTE | 2021-08-19 20:00 | NUR ---
ASSUMED CARE OF PT AT 1915. REPORT RECEIVED AT BEDSIDE. PT PRESENTS IN BED. ALERT AND GIVES THIS RN HER NORMAL SCOWL WITH A SMILE. PT IN NO APPARENT DISTRESS. ACKNOWLEDGES THAT SHE HAD A BUSY DAY WITH PHYSICAL THERAPY AND OTHER ACTIVITIES. PT ON PRECEDEX AT 0.2 MCG'S/KG/HOUR. WILL REVIEW CHART AND PLAN OF CARE FOR THIS PT.
--- NOTE | 2021-08-20 | NUR ---
PT HAS BEEN INCONTINENT TO ONE STOOL. PT COOPERATIVE WITH TURNS AND CLEANUP. PT MAINTAINS AT GOAL WITH TUBE FEEDING WITH MINIMAL RESIDUALS. WILL CONTINUE TO MONITOR PT.
[2021-08-20 03:42] LABS: Albumin, Blood 2.1 g/dL (3.4-5.0); Anion Gap 4 mmol/L (6-16); Blood Urea Nitrogen 25 mg/dL (8-24); Bun/Creatinine Ratio 25.2 (12.0-20.0); CO2, Blood 30 mmol/L (21-32); Chloride, Blood 109 mmol/L (98-108); Creatinine, Blood 0.99 mg/dL (0.40-1.00); Glomerular Filtration Rate 53 (60-); Glucose, Blood 151 mg/dL (70-99); Phosphorus, Blood 3.4 mg/dL (2.5-4.9); Potassium, Blood 4.1 mmol/L (3.5-5.5); Sodium, Blood 143 mmol/L (136-145)
--- NOTE | 2021-08-20 06:30 | NUR ---
PT HAS HAD HER PRECEDX INCREASED DURING NIGHT TO 0.4 MCG'S. PT HAS BEEN ABLE TO REST SOME TONIGHT. HAS HAD SEVERAL LOOSE STOOLS THAT SHE WAS UNAWARE SHE HAD PASSED. MARCO A AREA, AND FOLDS WITH SLIGHT REDNESS. MYCOSTATIN POWDER APPLIED. WILL CONTINUE TO MONITOR AND WILL REPORT OFF TO ONCOMING RN.
--- NOTE | 2021-08-20 14:44 | NUR ---
IN VISITNG, PATIENT REQUESTED TO BE IN THE CHAIR POSITION, INCREASED RESPIRATIONS, INCREASED FIO2 TO 45%, PATIENT ANSWERING YES AND NO, USES WRITING TO COMMUNICATE ALSO
--- NOTE | 2021-08-20 18:08 | NUR ---
PATIENT ALERT, MAKES NEEDS KNOWN, LIPS WORDS WITHOUT SOUNDS, ANSWERS Y/N WITH HEAD NODS, WRITE ON PAPER TO LET HER NEEDS KNOWN, CALL LIGHT WITH IN REACH, HAS USED CALL LIGHT, AFIBRILE, FOLLOWS DIRECTIONS. INCREASED ANXIETY LEADS TO SOB, DESATS TO 80% AND RECOVERS WITH INLINE SUCTION, ASSIT CONTROL INCREASED FOR DESATS AND ANXIOUSNESS. STARTED ON ATIVAN PO SCHEDULED, SATS 96%. LS DIMINISHED BASES, UPPER RHONCHI CLEARED WITH INLINE SUCTION. SBP 90-110, HEART RATE AFIB 80-100. PED TUBE SITE CDI, PIVOT 1.5 INFUSING AT GOAL 45 ML/HR, BM X3 TODAY, LOOSE DIARRHEA, HELD COLACE TODAY. VALENCIA TO GRAVITY CLEAR YELLOW, EDEMA IN EXTREMITIES, SACRAL AND DEPEDANT, MEDICATED WITH LASIX TODAY, NAOMI PICC IN PLACE, PRECEDEX INFUSING AT .2, TO HAVE A CXRAY IN AM, WILL RELAY TO PM RN, SISSY
--- NOTE | 2021-08-20 22:56 | NUR ---
ASSUMED CARE OF PATIENT AT 1900. REPORT RECEIVED FROM MERE GRAY. PT IS AWAKE AND ALERT. COMMUNICATES BY NODDING HEAD Y/N, WRITING AND MOUTHING WORDS. SHE DENIES PAIN OR DISCOMFORT AT THIS TIME.
[2021-08-21 03:42] LABS: BASOPHILS ABSOLUTE AUTO 0.03 K/mm3 (0.00-0.23); BASOPHILS PERCENT AUTO 0 % (0-2); EOSINOPHILS ABSOLUTE AUTO 0.22 K/mm3 (0.00-0.68); EOSINOPHILS PERCENT AUTO 3 % (0-6); Hematocrit 33.4 % (33.0-51.0); Hemoglobin 10.4 g/dL (11.5-16.0); IMMATURE GRAN ABSOLUTE AUTO 0.09 K/mm3 (0.00-0.10); IMMATURE GRAN PERCENT AUTO 1 % (0-1); LYMPHOCYTES ABSOLUTE AUTO 0.75 K/mm3 (0.84-5.20); LYMPHOCYTES PERCENT AUTO 10 % (21-46); MONOCYTES ABSOLUTE AUTO 0.72 K/mm3 (0.16-1.47); MONOCYTES PERCENT AUTO 10 % (4-13); Mean Corpuscular HGB 31.5 pg (26.0-34.0); Mean Corpuscular HGB Conc 31.1 g/dL (31.5-36.5); Mean Corpuscular Volume 101 fL (80-100); Mean Platelet Volume 11.5 fL (9.1-12.4); NEUTROPHILS ABSOLUTE AUTO 5.59 K/mm3 (1.96-9.15); NEUTROPHILS PERCENT AUTO 76 % (41-73); Platelet Count 143 K/mm3 (150-400); RDW Coefficient Variation 14.2 % (11.7-14.2); RDW Standard Deviation 52.3 fL (35.1-46.3)
[2021-08-21 04:02] LABS: Anion Gap 3 mmol/L (6-16); Blood Urea Nitrogen 31 mg/dL (8-24); Bun/Creatinine Ratio 32.7 (12.0-20.0); CO2, Blood 32 mmol/L (21-32); Calcium, Blood 7.8 mg/dL (8.5-10.1); Chloride, Blood 107 mmol/L (98-108); Creatinine, Blood 0.95 mg/dL (0.40-1.00); Glomerular Filtration Rate 56 (60-); Glucose, Blood 156 mg/dL (70-99); Phosphorus, Blood 2.6 mg/dL (2.5-4.9); Potassium, Blood 3.5 mmol/L (3.5-5.5); Sodium, Blood 142 mmol/L (136-145)
--- NOTE | 2021-08-21 06:21 | NUR ---
NO SIGNIFICANT CHANGES IN PT STATUS OVERNIGHT. SHE SLEPT RESTFULLY FOR APPROX 2 2 HOUR STRETCHES AND WAS RESTLESS THE REST OF THE NIGHT. PRECEDEX IS TITRATED OFF. BP SOFT. WILL CONTINUE TO MONITOR AND REPORT TO ONCOMING SHIFT.
--- NOTE | 2021-08-21 09:26 | NUR ---
ASSUMED CARE OF PATIENT 0700: A0X2, NEEDS REORIENTATION, DENIES PAIN, EXPRESSES DESIRE TO BE MADE DNR, AFIB 100S, WOUND HEAD STERI STRIPS REMOVED INSPECTOR RADAR AND ELECTRONICS HEALING WELL NEW PICTURE IN CHART, VALENCIA DRAINING JAYANT OUTPUT, RECTAL TUBE MINIMAL OUTPUT NO LEAKING, COCCYX CLEAN/DRY MILD REDNESS BLANCHABLE, AFIB MORE SUSTAINED 130S, PO LOPRESSOR ADDED, WILL CONTINUE TO MONITOR.
--- NOTE | 2021-08-21 11:33 | NUR ---
Pt remains on vent and tube feeds. More ashed today and aggitated. pt stating she does not want cpr. He life partner is at bedside. Advised him of her wishes. He is showing some stress and frailty today. His reponse is whatever she wants. He expressed i hope she has a chance and can come home. Will review plan with care managers. pt kps score is 30%. May be better served by comfort care. Pt significan others birthday is this saturday he will turn 88. He has mentioned it three times. Review with him his family he states he has no family. He is [place] vet whe did not access [place] care. He has neighbors and old veterans who are friends. He states she was his person and he depended on her.
--- NOTE | 2021-08-21 13:32 | NUR ---
extensive conversation today with Hernandez her SO and some with pt. Pt aggitated writing notes about wanting to go home. gently reviewed her needs and she became tearful. She clearly expressed no cpr. She is willing to stay the course for martita on the vent. Will continue to have supportive conversations with her and hernandez. Will suggest team meeting to discuss prognsois if she worsens.
--- NOTE | 2021-08-21 14:53 | NUR ---
Spiritual care visit conducted. Patient is sitting up in bed and alert. Patient's S.O., Germain, is bedside. I talk with patient briefly she seems to indicate that she is not very interested in going to [place] but insists that she just wants to go home. I talk with Germain in the hallway outside of ICU and he tells me that he is not interested in having the patient go to [place], he fears he will never see her again and he can't make the trip up there. He says that he thought someone suggested staying here longer to see if she can recover and if there is no hope then maybe [place] but he is very saddened by this option. If she genuinely has no hope of recovery he pleads that she would not be sent away from him. I will continue to provide therapeutic listening and support.
--- NOTE | 2021-08-21 17:34 | NUR ---
AOX2, DISORIENTED TO PLACE/EVENT, FOLLOWS COMMANDS, COMPLAINED OF PAIN ONE INSTANCE BUT COULD NOT COMMUNICATE LOCATION, 50MCG FENT GIVEN WITH IMPROVEMENT IN SYMPTOMS, PUPILS 3MM BRISK, +2/+1 PULSES RADIAL/DORSAL RESPECTIVELY, BLE EDEMA CONTINUE, 20MG LASIX GIVEN, ST 100-130S, METOPROLOL PO GIVEN WITH GOOD RESULTS IN HR RETURNED TO 90S, BP SOFT TO HTN 90-130S SBP, LUNGS COARSE, MODERATE SECRETIONS, TOLERATED SPONTATNEOUS FOR ONLY AN HOUR OTHERWISE VCAC SETTING AT 45% AND PEEP 5, UOP ADEQUATE CLEAR/YELLOW, SMALL AMOUNT 120 TYPE 7 RECTAL TUBE OUTPUT, MEETING WITH PALLIATIVE CARE PATIENT MADE DNR, DISCUSSION WITH SO KORI WHO BELEIVED DECISION OF TRANSFER STATUS WOULD BE MADE TODAY, HE IS AGAINST [facility], HE IS UNDER THE IMPRESSION PREVOUS MD JENKINS SAID PATIENT CAN STAY HERE IN ICU FOR A LONGER PERIOD OF TIME TO DECIDE IF SHE WILL BE IMPROVING OR CONTINUE TO DECLINE, KORI NEEDS FURTHER DISCUSSION REGARDING PLAN, WILL CONTINUE TO MONITOR AND REPORT TO NIGHT RN.
--- NOTE | 2021-08-21 20:00 | NUR ---
ASSUMPTION OF CARE RECEIVED REPORT FROM MERE ULLOA AT 1900. PT REMAINS ON VENT WITH TRACH (8.0 SHILEY), VENT AC/VC 14/380/5/45%, SPO2 >92%. SHE IS ALERT AND ORIENTED TO SELF AND IS ABLE TO FOLLOW SIMPLE COMMANDS. HR IS AFIB, RATE IN 120-130'S. BP STABLE. BLE ARE VERY EDEMATOUS, 3+. SHE IS RECEIVING LASIX. PEG TUBE IN PLACE WITH PIVOT 1.5 AT 45ML/HR AND 200ML Q4H WATER FLUSHES FOR MANAGEMENT OF HYPERNATREMIA. VALENCIA PATENT, DRAINING CLEAR LIGHT YELLOW URINE. RECTAL TUBE PATENT, NO LEAKING, DRAINING TO GRAVITY. PICC IN NAOMI INFUSING WIHT TKO ONLY. ORDERS REVIEWED, WILL TREAT PRESCRIBED.
[2021-08-22 04:42] LABS: BASOPHILS ABSOLUTE AUTO 0.04 K/mm3 (0.00-0.23); BASOPHILS PERCENT AUTO 1 % (0-2); EOSINOPHILS PERCENT AUTO 1 % (0-6); Hematocrit 32.9 % (33.0-51.0); Hemoglobin 10.3 g/dL (11.5-16.0); IMMATURE GRAN PERCENT AUTO 1 % (0-1); LYMPHOCYTES ABSOLUTE AUTO 0.69 K/mm3 (0.84-5.20); LYMPHOCYTES PERCENT AUTO 8 % (21-46); MONOCYTES ABSOLUTE AUTO 0.87 K/mm3 (0.16-1.47); MONOCYTES PERCENT AUTO 11 % (4-13); Mean Corpuscular HGB 31.5 pg (26.0-34.0); Mean Corpuscular HGB Conc 31.3 g/dL (31.5-36.5); Mean Corpuscular Volume 101 fL (80-100); Mean Platelet Volume 11.3 fL (9.1-12.4); NEUTROPHILS ABSOLUTE AUTO 6.51 K/mm3 (1.96-9.15); NEUTROPHILS PERCENT AUTO 78 % (41-73); Platelet Count 183 K/mm3 (150-400); RDW Coefficient Variation 14.1 % (11.7-14.2); RDW Standard Deviation 51.8 fL (35.1-46.3); Red Blood Cell Count 3.27 M/mm3 (3.80-5.20); White Blood Cell Count 8.31 K/mm3 (4.00-11.30)
[2021-08-22 05:04] LABS: Bun/Creatinine Ratio 35.3 (12.0-20.0); Calcium, Blood 8.1 mg/dL (8.5-10.1); Creatinine, Blood 0.93 mg/dL (0.40-1.00); Magnesium, Blood 1.6 mg/dL (1.6-2.4); Phosphorus, Blood 2.2 mg/dL (2.5-4.9); Potassium, Blood 3.3 mmol/L (3.5-5.5)
--- NOTE | 2021-08-22 06:44 | NUR ---
PT REMAINS ALERT AND ORIENTED X2, FOLLOWING DIRECTIONS AND COOPERATIVE WITH CARE. FENTANYL 50MCG INCREASED TO Q1H PRN DUE TO INCREASED RESP. RATE, COUGHING AND PEAK PRESSURES IN UPPER 30-40'S. PO METOPROLOL DOSES HELD FENTANYL LOWERED HR AND BP. HR REMAINS AFIB, RATE IN 100-110'S. BP STABLE. SPO2 IMPROVED WITH FENTANYL, >92% WITH VENT SETTINGS UNCHANGED AC/VC 14/380/5/45%. TUBE FEED CHANGED BACK TO JEVITY 1.5 AT 45ML/HR, Q4H 200ML H2O FLUSHES. VALENCIA PATENT, DRAINING CLEAR YELLOW URINE, 2400ML OUT THIS SHIFT. RECTAL TUBE PATENT, DRAINING TO GRAVITY. REDNESS, WARMTH AND SWELLING UNCHANGED TO RIGHT UPPER ARM AND FOREARM. REPLACEMENT OF 20MM KPHOS ORDERED THIS AM FOR K+ OF 3.3 AND PHOS OF 2.2. WILL REPORT TO ONCOMING SHIFT.
[2021-08-22] MEDS ORDERED: METO25 PO (13:28)
[2021-08-22] MEDS ORDERED: Amiodarone HCl200 MG PO (13:30)
[2021-08-22] MEDS ORDERED: Ativan1 MG PT (13:31)
[2021-08-22] MEDS ORDERED: LASIX40 MG PO (13:32)
[2021-08-22] MEDS ORDERED: POTA10T PO (13:33)
[2021-08-22] MEDS ORDERED: SENN187 PO (13:33)
--- NOTE | 2021-08-22 14:26 | NUR ---
TRANSFER TO [facility] REPORT CALLED TO MERE LEDESMA VIA PHONE. ALL QUESTIONS ANSWERED. [facility] CREW HERE TO TRANSPORT PT. PT TRANSFERED TO EMS GURNED AND CONNECTED TO [facility] WITHOUT COMPLICATIONS BY RT. ALL PT BELONGINGS SENT HOME WITH PT SPOUSE. PT LEFT THE ROOM AT 1425.
--- NOTE | 2021-08-22 14:36 | NUR ---
Spiritual care visit conducted. Patient is being prepped for transport to [facility] in [place], Pt's S.O. is standing watching. He talks about his concerns and the things that are comforting to him. He again emphasizes his struggles to comprehend and remember information about the pt but is able to recollect about the kind of facility she is going to and why she is going there. I assist in gather some of the information he was requesting about how to reach the pt's new location. He tells me about the good neighborhood support he will have and the good frame of mind he is in today. I provide therapeutic listening and a calming presence. I walk pt to his car and give him my business card for further assistance navigating the medical system moving forward.
== END 2021-08-22 14:25 | DRG 4 ==
LOC: ER 13:52 → ICUW 18:23
PROVIDERS: Family Medicine; Internal Medicine Critical Care Medicine; Nurse Practitioner Acute Care; Student in an Organized Health Care Education/Training Program; Surgery; ADMIT Internal Medicine
PROC: 5A1955Z Respiratory Ventilation, Greater than 96 Consecutive Hours (ICD-10-PCS; 2021-08-05)
PROC: 3E033XZ Introduction of Vasopressor into Peripheral Vein, Percutaneous Approach (ICD-10-PCS; 2021-08-05)
PROC: 0BH18EZ Insertion of Endotracheal Airway into Trachea, Via Natural or Artificial Opening Endoscopic (ICD-10-PCS; 2021-08-05)
PROC: 06HY33Z Insertion of Infusion Device into Lower Vein, Percutaneous Approach (ICD-10-PCS; 2021-08-05)
PROC: 5A09357 Assistance with Respiratory Ventilation, Less than 24 Consecutive Hours, Continuous Positive Airway Pressure (ICD-10-PCS; 2021-08-11)
PROC: 5A1955Z Respiratory Ventilation, Greater than 96 Consecutive Hours (ICD-10-PCS; 2021-08-13)
PROC: 0BH18EZ Insertion of Endotracheal Airway into Trachea, Via Natural or Artificial Opening Endoscopic (ICD-10-PCS; 2021-08-13)
PROC: 02HV33Z Insertion of Infusion Device into Superior Vena Cava, Percutaneous Approach (ICD-10-PCS; 2021-08-13)
PROC: 0DH63UZ Insertion of Feeding Device into Stomach, Percutaneous Approach (ICD-10-PCS; 2021-08-18)
PROC: 0B113F4 Bypass Trachea to Cutaneous with Tracheostomy Device, Percutaneous Approach (ICD-10-PCS; principal; 2021-08-18 09:45)
DX: A41.9 Sepsis, unspecified organism (principal); R65.21 Severe sepsis with septic shock; J18.9 Pneumonia, unspecified organism; G92.8 Other toxic encephalopathy; I21.4 Non-ST elevation (NSTEMI) myocardial infarction; J96.21 Acute and chronic respiratory failure with hypoxia; Z66 Do not resuscitate; J96.22 Acute and chronic respiratory failure with hypercapnia; K72.00 Acute and subacute hepatic failure without coma; I50.31 Acute diastolic (congestive) heart failure; J44.0 Chronic obstructive pulmonary disease with (acute) lower respiratory infection; E87.2 Acidosis; J44.1 Chronic obstructive pulmonary disease with (acute) exacerbation; N17.9 Acute kidney failure, unspecified; I13.0 Hypertensive heart and chronic kidney disease with heart failure and stage 1 through stage 4 chronic kidney disease, or unspecified chronic kidney disease; E87.0 Hyperosmolality and hypernatremia; Z20.822 Contact with and (suspected) exposure to COVID-19; Z78.1 Physical restraint status; I27.20 Pulmonary hypertension, unspecified; K74.60 Unspecified cirrhosis of liver; I67.9 Cerebrovascular disease, unspecified; E83.51 Hypocalcemia; N18.9 Chronic kidney disease, unspecified; I50.811 Acute right heart failure; E87.6 Hypokalemia; E78.5 Hyperlipidemia, unspecified; I48.91 Unspecified atrial fibrillation; R74.01 Elevation of levels of liver transaminase levels; Z98.51 Tubal ligation status; Z79.899 Other long term (current) drug therapy; Z87.891 Personal history of nicotine dependence; Z86.73 Personal history of transient ischemic attack (TIA), and cerebral infarction without residual deficits
CPT/HCPCS: 0241U; 31500; 36415; 36569; 36600; 36620; 51702; 70450; 71045; 74176; 76705; 80047; 80048; 80053; 80069; 80202; 81001; 82140; 82248; 82330; 82550; 82803; 82947; 83605; 83735; 83880; 84100; 84132; 84145; 84484; 85014; 85025; 85049; 85610; 85730; 87040; 87070; 87086; 87205; 87449; 88305; 88342; 92610; 93005; 93010; 93306; 93308; 93321; 93970; 94002; 94003; 94640; 94660; 94667; 94668; 96365; 96367; 96375; 97110; 97163; 97164; 97530; 99291-25; A9270; C1751; C1894; C9113; J0282; J0456; J0690; J0696; J1630; J1644; J1650; J1940; J2060; J2250; J2370; J2405; J2543; J2704; J3010; J3370; J3475; J3480; J7030; J7050; J7060; J7120; P9045; P9046